=== PATIENT | female | born 1930 | race Caucasian/White ===

== ENCOUNTER 2019-01-16 15:52 | Inpatient (IN) ==
[2019-01-16] MEDS ORDERED: 0.9 % Sodium Chloride 1,000 ML IVC ONE (16:16)
[2019-01-16] MEDS ORDERED: Ondansetron 4 MG/2 ML VIAL IVP ONE (16:16)
[2019-01-16 16:44] LABS: Basophils % 0.4 %; Eosinophils # 0.2 K/mcL (0.0-0.6); Eosinophils % 2.1 %; Hematocrit 42.8 % (35.3-44.9); Hemoglobin 14.1 g/dL (11.5-15.4); Immature Granulocytes % 0.4 % (0-4); Lymphocytes # 1.6 K/mcL (0.6-4.6); Lymphocytes % 15.2 %; Mean Corpuscular HGB Conc 32.9 g/dL (31.6-35.5); Mean Corpuscular Hemoglobin 30.3 pg (28.0-33.3); Mean Corpuscular Volume 91.8 fL (83.0-100.0); Mean Platelet Volume 10.5 fL (9.4-12.4); Monocytes # 0.7 K/mcL (0.0-1.3); Monocytes % 6.6 %; Neutrophils # 7.8 K/mcL (1.6-8.9); Platelet Count 239 K/mcL (140-400); Red Blood Count 4.66 M/mcL (3.82-4.97); Red Cell Distribution Width 13.2 % (11.5-14.5); Segmented Neutrophils % 75.3 %
[2019-01-16 16:52] LABS: Prothrombin Time 11.7 Seconds (9.4-12.1)
[2019-01-16 16:56] LABS: Activated Partial Thrombo Time 30.9 Seconds (26.0-36.0)
[2019-01-16 17:03] LABS: Alanine Aminotransferase 30 Units/L (7-52); Albumin 4.4 g/dL (3.5-5.7); Albumin/Globulin Ratio 1.3 (1.1-2.2); Alkaline Phosphatase 65 Units/L (34-104); Amylase 52 Units/L (29-103); Aspartate Amino Transferase 45 Units/L (13-39); BUN/Creatinine Ratio 19 (6-26); Bilirubin,Direct 0.1 mg/dL (0.0-0.2); Bilirubin,Indirect 0.6 mg/dL (0.0-1.2); Bilirubin,Total 0.7 mg/dL (0.3-1.0); Blood Urea Nitrogen 16 mg/dL (8-23); Calcium 9.7 mg/dL (8.6-10.3); Carbon Dioxide 27 mEq/L (23-29); Chloride 102 mEq/L (98-107); Globulin 3.5 g/dL (2.4-3.5); Glucose 151 mg/dL (70-105); Lipase 14 Units/L (11-82); Osmolality,Calculated 288 (280-300); Sodium 137 mEq/L (136-145); Total Protein 7.9 g/dL (6.4-8.9); Troponin I < 0.03 ng/mL (< 0.04); eGFR For Non-African Americans > 60 (> 60)
[2019-01-16] MEDS ORDERED: Prochlorperazine 10 MG/2 ML VIAL IVP STA (17:43)
--- NOTE | 2019-01-16 17:53 | Emergency Department Note ---
Disposition Clinical Impression: Small bowel obstruction Disposition: Admitted As Inpatient Condition: Good Referrals: Rukhsana Haque CNP [Primary Care Provider] - Forms: ED Satisfaction Letter, Work/School Release Time of Disposition: 17:58 Abdominal Pain HPI - General Chief Complaint: ED Abdominal Pain Stated Complaint: N/V Time Seen by Provider: 01/16/19 15:56 Source: patient, EMS - History of Present Illness HPI Narrative: Patient is a troponin of present probably chief complaint of vomiting. Patient reports that she started having multiple episodes of vomiting last week for hours and been unable to keep anything down. The patient states she also has some vague abdominal pain with this but is not really hurting that bad. Patient reports she had similar episode in this she had a small bowel obstruction. Patient reports that prior abdominal surgeries include a cholecystectomy and surgery for a carcinoid tumor Pt Subjective Complaint: abdominal pain Pain Scale: 8 - Related Data Home Medications Medication Instructions Recorded Confirmed Aspirin 81 mg PO DAILY 05/29/15 05/05/17 Atenolol [Tenormin] 50 mg PO BID 05/29/15 05/05/17 Cholecalciferol (D-3) [Vitamin D3] 1,000 unit PO DAILY 05/29/15 05/05/17 Doxepin [Sinequan] 25 mg PO HS 05/29/15 05/05/17 Levothyroxine [Synthroid] 150 mcg PO DAILY 05/29/15 05/05/17 Multivit-Min/FA/Lycopen/Lutein 1 each PO DAILY 05/29/15 05/05/17 [Centrum Silver Tablet] Previous Rx's Medication Instructions Recorded Losartan Potassium [Cozaar] 50 mg PO DAILY #90 tab 07/22/16 Allergies Allergy/AdvReac Type Severity Reaction Status Date / Time Penicillins Allergy swelling Verified 05/05/17 10:53 Abdominal Pain PMH - Past Medical History Medical history: Reports: hypertension Female Surgical History: Reports: cholecystectomy, hysterectomy - Social History Smoking status: Never smoker Alcohol use: Reports: none Drug use: Reports: none Physical Exam - General General appearance: alert, in no apparent distress Course Vital Signs Temperature 98.2 F 01/16/19 16:04 Pulse Rate 75 01/16/19 16:04 Respiratory Rate 18 01/16/19 16:04 Blood Pressure 193/107 01/16/19 16:04 O2 Sat by Pulse Oximetry 100 01/16/19 16:04 Temperature 98.2 F 01/16/19 16:04 Pulse Rate 75 01/16/19 16:04 Respiratory Rate 18 01/16/19 16:04 Blood Pressure 193/107 01/16/19 16:04 O2 Sat by Pulse Oximetry 100 01/16/19 16:04 Oxygen Delivery Oxygen Delivery Room Air Abdominal Pain - MDM Narrative Medical decision making narrative: Given the CT findings the case was discussed with the on-call surgical staff and the patient will be admitted to the surgery service with a diagnosis of small bowel obstruction - Lab Data Result diagrams: 01/16/19 16:16 01/16/19 16:16 Lab Results 01/16/19 01/16/19 01/16/19 Range/Units 16:16 16:16 16:16 WBC 10.4 (4.3-11.1) K/mcL RBC 4.66 (3.82-4.97) M/mcL Hgb 14.1 (11.5-15.4) g/dL Hct 42.8 (35.3-44.9) % MCV 91.8 (83.0-100.0) fL MCH 30.3 (28.0-33.3) pg MCHC 32.9 (31.6-35.5) g/dL RDW 13.2 (11.5-14.5) % Plt Count 239 (140-400) K/mcL MPV 10.5 (9.4-12.4) fL Immature Gran % 0.4 (0-4) % Seg Neutrophils % 75.3 % Lymphocytes % 15.2 % Monocytes % 6.6 % Eosinophils % 2.1 % Basophils % 0.4 % Neutrophils # 7.8 (1.6-8.9) K/mcL Lymphocytes # 1.6 (0.6-4.6) K/mcL Monocytes # 0.7 (0.0-1.3) K/mcL Eosinophils # 0.2 (0.0-0.6) K/mcL Basophils # 0.0 (0.0-0.2) K/mcL PT 11.7 (9.4-12.1) Seconds INR 1.0 APTT 30.9 (26.0-36.0) Seconds Sodium 137 (136-145) mEq/L Potassium 4.0 (3.5-5.1) mEq/L Chloride 102 (98-107) mEq/L Carbon Dioxide 27 (23-29) mEq/L BUN 16 (8-23) mg/dL Creatinine 0.83 (0.60-1.20) mg/dL Est GFR ( Amer) > 60 (> 60) Est GFR (Non-Af Amer) > 60 (> 60) BUN/Creatinine Ratio 19 (6-26) Glucose 151 H (70-105) mg/dL Calculated Osmolality 288 (280-300) Lactic Acid (0.5-2.2) mmol/L Calcium 9.7 (8.6-10.3) mg/dL Total Bilirubin 0.7 (0.3-1.0) mg/dL Direct Bilirubin 0.1 (0.0-0.2) mg/dL Indirect Bilirubin 0.6 (0.0-1.2) mg/dL AST 45 H (13-39) Units/L ALT 30 (7-52) Units/L Alkaline Phosphatase 65 (34-104) Units/L Troponin I < 0.03 (< 0.04) ng/mL Serum Total Protein 7.9 (6.4-8.9) g/dL Albumin 4.4 (3.5-5.7) g/dL Globulin 3.5 (2.4-3.5) g/dL Albumin/Globulin Ratio 1.3 (1.1-2.2) Amylase 52 (29-103) Units/L Lipase 14 (11-82) Units/L 04/16/19 Range/Units 16:28 WBC (4.3-11.1) K/mcL RBC (3.82-4.97) M/mcL Hgb (11.5-15.4) g/dL Hct (35.3-44.9) % MCV (83.0-100.0) fL MCH (28.0-33.3) pg MCHC (31.6-35.5) g/dL RDW (11.5-14.5) % Plt Count (140-400) K/mcL MPV (9.4-12.4) fL Immature Gran % (0-4) % Seg Neutrophils % % Lymphocytes % % Monocytes % % Eosinophils % % Basophils % % Neutrophils # (1.6-8.9) K/mcL Lymphocytes # (0.6-4.6) K/mcL Monocytes # (0.0-1.3) K/mcL Eosinophils # (0.0-0.6) K/mcL Basophils # (0.0-0.2) K/mcL PT (9.4-12.1) Seconds INR APTT (26.0-36.0) Seconds Sodium (136-145) mEq/L Potassium (3.5-5.1) mEq/L Chloride (98-107) mEq/L Carbon Dioxide (23-29) mEq/L BUN (8-23) mg/dL Creatinine (0.60-1.20) mg/dL Est GFR ( Amer) (> 60) Est GFR (Non-Af Amer) (> 60) BUN/Creatinine Ratio (6-26) Glucose (70-105) mg/dL Calculated Osmolality (280-300) Lactic Acid 1.8 (0.5-2.2) mmol/L Calcium (8.6-10.3) mg/dL Total Bilirubin (0.3-1.0) mg/dL Direct Bilirubin (0.0-0.2) mg/dL Indirect Bilirubin (0.0-1.2) mg/dL AST (13-39) Units/L ALT (7-52) Units/L Alkaline Phosphatase (34-104) Units/L Troponin I (< 0.04) ng/mL Serum Total Protein (6.4-8.9) g/dL Albumin (3.5-5.7) g/dL Globulin (2.4-3.5) g/dL Albumin/Globulin Ratio (1.1-2.2) Amylase (29-103) Units/L Lipase (11-82) Units/L
--- NOTE | 2019-01-16 19:34 | Acute Care Surgery H&P ---
Date of Encounter: 01/16/19 Time of Encounter: 19:00 Assessment and Plan (1) Small bowel obstruction Current Visit: Yes Status: Acute The assessment and plan as outlined above was discussed with the patient and/or family members who expressed understanding and agreement. All questions were answered. High-grade partial small bowel obstruction is diagnosed. She will be placed on bowel rest IV hydration and nasogastric tube drainage. We will evaluate her bowel function on daily basis and perform either a barium or Gastrografin small bowel follow-through. Further decision making based on these findings. History of Present Illness Chief complaint: Nausea vomiting and abdominal pain HPI: Ms. Escalante is a 88 year old female Who is had multiple previous abdominal procedures. 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 Earlier today she developed severe crampy upper abdominal pain followed by high-volume nausea and vomiting. She has not previously had episodes of this type of pain since her last surgery. Her small bowel resection was 12 years ago. She sought eval uation in the emergency room and CAT scan was ordered. CAT scan was consistent with small bowel obstruction with a possible transition area at the anastomosis. She is examined with nasogastric tube in place and she is had some relief of her abdominal discomfort. She denies shakes chills or fever. She now presents for evaluation and management of suspected bowel obstruction Past Med Surg Social Fam HX - Past Medical History Medical history: hypertension Additional medical history: carcinoid tumor - Past Surgical History Surgical History: cholecystectomy, hysterectomy, other (Lysis of adhesions and resection of small bowel carcinoid) - Social History Smoking Status: Never smoker Alcohol use: none Drug use: none Medications and Allergies Atenolol [Tenormin] 50 mg PO BID 05/29/15 [History] Cholecalciferol (D-3) [Vitamin D3] 1,000 unit PO DAILY 05/29/15 [History] Doxepin [Sinequan] 25 mg PO HS 05/29/15 [History] Levothyroxine [Synthroid] 150 mcg PO DAILY 05/29/15 [History] Multivit-Min/FA/Lycopen/Lutein [Centrum Silver Tablet] 1 each PO DAILY 05/29/15 [History] Losartan Potassium [Cozaar] 50 mg PO DAILY #90 tab 07/22/16 [Rx] Allergy/AdvReac Type Severity Reaction Status Date / Time Penicillins Allergy swelling Verified 05/05/17 10:53 Review of Systems All systems PM: The remainder of the systems were reviewed and are negative General Surgery Exam Initial Vital Signs Temp Pulse Resp BP Pulse Ox 98.2 F 75 18 193/107 100 01/16/19 16:04 01/16/19 16:04 01/16/19 16:04 01/16/19 16:04 01/16/19 16:04 - General physical appearance well developed, well nourished, moderate distress, moderate pain, other (Nasogastric tube in place and functioning) - ENT normal pinna, normal nares, normal mucosa, no hearing loss, no congestion - Respiratory normal expansion, normal respiratory effort, clear to percussion, clear to auscultation - Cardiovascular Cardiovascular exam: Present: RRR, no murmurs/rubs/gallops - Abdomen Abdomen general surgery: Present: bowel sounds present, tender Abdominal Tenderness: Present: epigastic, diffusely Hernia: Present: none (Multiple entry midline abdominal scar) - Integumentary Integumentary general surgery: Present: warm and dry, no abnormal pigmentation, other (No evidence of jaundice) - Neurologic Present: CN 2-12 grossly intact, normal coordination, normal sensation - Psychiatric Psychiatric general surgery: Present: appropriate, oriented to person, oriented to place, oriented to time, speech is normal, memory intact Results - Labs 01/16/19 16:16 01/16/19 16:16 Abnormal lab results Glucose 151 mg/dL (70-105) H 01/16/19 16:16 AST 45 Units/L (13-39) H 01/16/19 16:16 Diabetes panel 01/16/19 Range/Units 16:16 Sodium 137 (136-145) mEq/L Potassium 4.0 (3.5-5.1) mEq/L Chloride 102 (98-107) mEq/L Carbon Dioxide 27 (23-29) mEq/L BUN 16 (8-23) mg/dL Creatinine 0.83 (0.60-1.20) mg/dL Glucose 151 H (70-105) mg/dL Calcium 9.7 (8.6-10.3) mg/dL AST 45 H (13-39) Units/L ALT 30 (7-52) Units/L Alkaline Phosphatase 65 (34-104) Units/L Albumin 4.4 (3.5-5.7) g/dL Calcium panel 01/16/19 Range/Units 16:16 Calcium 9.7 (8.6-10.3) mg/dL Albumin 4.4 (3.5-5.7) g/dL Pituitary panel 01/16/19 Range/Units 16:16 Sodium 137 (136-145) mEq/L Potassium 4.0 (3.5-5.1) mEq/L Chloride 102 (98-107) mEq/L Carbon Dioxide 27 (23-29) mEq/L BUN 16 (8-23) mg/dL Creatinine 0.83 (0.60-1.20) mg/dL Glucose 151 H (70-105) mg/dL Calcium 9.7 (8.6-10.3) mg/dL Adrenal panel 01/16/19 Range/Units 16:16 Sodium 137 (136-145) mEq/L Potassium 4.0 (3.5-5.1) mEq/L Chloride 102 (98-107) mEq/L Carbon Dioxide 27 (23-29) mEq/L BUN 16 (8-23) mg/dL Creatinine 0.83 (0.60-1.20) mg/dL Glucose 151 H (70-105) mg/dL Calcium 9.7 (8.6-10.3) mg/dL Total Bilirubin 0.7 (0.3-1.0) mg/dL AST 45 H (13-39) Units/L ALT 30 (7-52) Units/L Alkaline Phosphatase 65 (34-104) Units/L Albumin 4.4 (3.5-5.7) g/dL All other labs normal. - Imaging CT scan - abdomen: image reviewed (I personally reviewed the CAT scan the abdomen. She has mild to moderate proximal small bowel dilatation. To my examination there is not a transition point at the anastomosis. She does have stool throughout the colon. This appears to be a partial bowel obstruction. There were no masses or adenopathy that I can identify)
[2019-01-17] MEDS ORDERED: Ondansetron 4 MG/2 ML VIAL IVP PRN (04:49)
[2019-01-17] MEDS ORDERED: OXYCODONE Oral CONC 10 MG/0.5 ML ORAL.SYG SL PRN (04:49)
[2019-01-17] MEDS: 0.9 % Sodium Chloride w KCl 20 MEQ/1,000 ML MLS IVC SCH ×2 (05:18→19:32)
[2019-01-17] MEDS: *HR* Heparin 5,000 UNIT/ML VIAL SQ SCH ×2 (05:18→17:43)
[2019-01-17] MEDS: Pantoprazole 40 MG VIAL IVP SCH (09:49)
--- NOTE | 2019-01-17 12:14 | AcuteCareSurgery Progress Note ---
<Dori Pedraza - Last Filed: 01/17/19 12:08> Date of Encounter: 01/17/19 Time of Encounter: 12:00 - Assessment and Plan (1) Small bowel obstruction Current Visit: Yes Status: Acute Continue with conservative measures at this time including: Bowel rest/NPO NG tube to LIWS IV fluids Supportive care Serial abdominal exams Strict I&Os Plan for SBFT with gastrograffin 01/18 to further evaluate SBO Surgery will continue to follow and assess progress Subjective Patient reports: no new complaints, feels better, voiding w/o difficulty, flatus, no bowel movement (no BM today- reports BM yesterday), afebrile, other (Patient states that she feels hungry today) Objective Vital Signs - Last 8 Hours Temp Pulse Resp BP Pulse Ox 01/17/19 10:44 97.8 F 79 18 167/79 96 01/17/19 08:25 98.2 F 78 16 141/69 95 Intake and Output 01/16/19 01/17/19 01/17/19 23:59 07:59 15:59 Intake Total 1000 / 1000 343 / 343 Output Total 750 / 750 250 / 250 Balance 250 / 250 -250 / -250 343 / 343 Intake: IV Fluids 1000 / 1000 343 / 343 0.9 % Sodium Chloride 1,000 ML 1000 / 1000 @ 500 mls/hr IVC .Q2H ONE Rx#: [id number] KCl 20 mEq in 0.9% Sodium 343 / 343 Chloride 20 meq In 1,000 ml @ 75 mls/hr IVC .[id number] [facility] Rx#: [id number] Oral 0 / 0 Output: Gastric Drainage 750 / 750 250 / 250 Other: # Voids 1 0 # Urine Diapers 1 Weight 76.566 kg 81 kg Blood Glucose* 140 126 Patient Weight 01/17/19 23:59 Weight 81 kg - General physical appearance well developed, well nourished, no distress - Eyes normal ocular movement - ENT normal mucosa, dry mucosa, atraumatic, normocephalic - Neck Neck exam: trachea midline - Respiratory normal respiratory effort, clear to auscultation - Cardiovascular Cardiovascular exam: Present: RRR - Abdomen Abdomen: Present: bowel sounds present, soft, distended, wound (NG tube to LIWS (300ml of drainage noted since midnight)) - Neurologic CN 2-12 grossly intact - Psychiatric oriented to time, oriented to person, oriented to place, speech is normal, memory intact - Labs 01/16/19 16:16 01/16/19 16:16 Diabetes panel 01/16/19 Range/Units 16:16 Sodium 137 (136-145) mEq/L Potassium 4.0 (3.5-5.1) mEq/L Chloride 102 (98-107) mEq/L Carbon Dioxide 27 (23-29) mEq/L BUN 16 (8-23) mg/dL Creatinine 0.83 (0.60-1.20) mg/dL Glucose 151 H (70-105) mg/dL Calcium 9.7 (8.6-10.3) mg/dL AST 45 H (13-39) Units/L ALT 30 (7-52) Units/L Alkaline Phosphatase 65 (34-104) Units/L Albumin 4.4 (3.5-5.7) g/dL Calcium panel 01/16/19 Range/Units 16:16 Calcium 9.7 (8.6-10.3) mg/dL Albumin 4.4 (3.5-5.7) g/dL Pituitary panel 01/16/19 Range/Units 16:16 Sodium 137 (136-145) mEq/L Potassium 4.0 (3.5-5.1) mEq/L Chloride 102 (98-107) mEq/L Carbon Dioxide 27 (23-29) mEq/L BUN 16 (8-23) mg/dL Creatinine 0.83 (0.60-1.20) mg/dL Glucose 151 H (70-105) mg/dL Calcium 9.7 (8.6-10.3) mg/dL Adrenal panel 01/16/19 Range/Units 16:16 Sodium 137 (136-145) mEq/L Potassium 4.0 (3.5-5.1) mEq/L Chloride 102 (98-107) mEq/L Carbon Dioxide 27 (23-29) mEq/L BUN 16 (8-23) mg/dL Creatinine 0.83 (0.60-1.20) mg/dL Glucose 151 H (70-105) mg/dL Calcium 9.7 (8.6-10.3) mg/dL Total Bilirubin 0.7 (0.3-1.0) mg/dL AST 45 H (13-39) Units/L ALT 30 (7-52) Units/L Alkaline Phosphatase 65 (34-104) Units/L Albumin 4.4 (3.5-5.7) g/dL Consult Discharge Plan - Plan Referrals: Rukhsana Haque, CLOTH DESIGNER [Primary Care Provider] - - Attending Attestation For this encounter, I have reviewed the ANAESTHESIOLOGIST or PA documentation, treatment plan, and medical decision making; and I have had face to face time with this patient. <Lorenzo Zheng - Last Filed: 01/17/19 18:49> Date of Encounter: 01/17/19 Objective Vital Signs - Last 8 Hours Temp Pulse Resp BP Pulse Ox 01/17/19 16:49 98.2 F 84 16 191/67 94 Intake and Output 01/17/19 01/17/19 01/17/19 07:59 15:59 23:59 Intake Total 750 / 750 0 / 0 Output Total 250 / 250 700 / 700 Balance -250 / -250 50 / 50 0 / 0 Intake: IV Fluids 750 / 750 KCl 20 mEq in 0.9% Sodium 750 / 750 Chloride 20 meq In 1,000 ml @ 75 mls/hr IVC .[id number] [facility] Rx#: [id number] Oral 0 / 0 0 / 0 Output: Urine 400 / 400 Gastric Drainage 250 / 250 300 / 300 Other: # Voids 1 0 Weight 81 kg Blood Glucose* 140 126 115 Patient Weight 01/17/19 23:59 Weight 81 kg - Labs 01/16/19 16:16 01/16/19 16:16 - Attending Attestation I have personally seen and examined the patient. I have reviewed pertinent labs, imaging, progress notes, including this one. I have discussed the plan in thorough detail with the resident and nurse practitioner. I agree with the above assessment and plan and wish to add the following... 88F multiple abdominal surgeries with sbo; bowel rest with NG tube manuel SBFT in AM will cont to monitor awaiting return of bowel function
[2019-01-17 13:23] LABS: Bilirubin,Urine Negative (Negative); Blood,Urine Negative (Negative); Clarity,Urine Clear (Clear); Color,Urine Yellow (Yellow); Glucose,Urine (UA) Normal (Normal); Ketones,Urine Trace mg/dL (Negative); Leukocyte Esterase,Urine Small (Negative); Nitrite,Urine Negative (Negative); Protein,Urine Negative (Neg-Trace); Specific Gravity,Urine 1.016 (1.010-1.025); Urobilinogen,Urine Normal (Normal)
[2019-01-17 13:26] LABS: Bacteria,Urine None Seen per hpf (None-Few); Hyaline Casts,Urine None Seen per lpf (None-Few); RBC,Urine 0-3 per hpf (0-3); Squamous Epithelial Cell,Urine Moderate per lpf (None-Few); WBC,Urine 15-30 per hpf (0-3)
[2019-01-17] MEDS: *HR* Metoprolol 5 MG/5 ML VIAL IVP PRN ×2 (15:16→21:56)
--- NOTE | 2019-01-17 18:03 | Electrocardiograph Report ---
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
[2019-01-18 05:17] LABS: Hematocrit 38.8 % (35.3-44.9); Hemoglobin 12.7 g/dL (11.5-15.4); Immature Granulocytes % 0.3 % (0-4); Lymphocytes % 13.7 %; Mean Corpuscular HGB Conc 32.7 g/dL (31.6-35.5); Mean Corpuscular Volume 94.6 fL (83.0-100.0); Mean Platelet Volume 10.6 fL (9.4-12.4); Monocytes % 9.5 %; Platelet Count 191 K/mcL (140-400); Red Cell Distribution Width 13.4 % (11.5-14.5); Segmented Neutrophils % 75.7 %
[2019-01-18 05:18] LABS: Basophils % 0.3 %; Eosinophils % 0.5 %; Lymphocytes # 1.1 K/mcL (0.6-4.6); Monocytes # 0.7 K/mcL (0.0-1.3); Neutrophils # 5.8 K/mcL (1.6-8.9)
[2019-01-18] MEDS: *HR* Heparin 5,000 UNIT/ML VIAL SQ SCH ×2 (05:21→18:02)
[2019-01-18 05:31] LABS: BUN/Creatinine Ratio 16 (6-26); Blood Urea Nitrogen 11 mg/dL (8-23); Calcium 8.8 mg/dL (8.6-10.3); Carbon Dioxide 27 mEq/L (23-29); Chloride 105 mEq/L (98-107); Glucose 136 mg/dL (70-105); Osmolality,Calculated 291 (280-300); Potassium 4.1 mEq/L (3.5-5.1); Sodium 140 mEq/L (136-145); eGFR For Non-African Americans > 60 (> 60)
[2019-01-18] MEDS: *HR* Metoprolol 5 MG/5 ML VIAL IVP PRN (06:54)
--- NOTE | 2019-01-18 07:46 | AcuteCareSurgery Progress Note ---
Date of Encounter: 01/18/19 Time of Encounter: 07:40 - Assessment and Plan (1) Small bowel obstruction Current Visit: Yes Status: Acute The patient has responded well to bowel rest. She has had a spontaneous bowel movement and normalization of bowel sounds. It is reasonable to remove the nasogastric tube in place her on clear liquids today. Dietary trial. Subjective Narrative: The patient states that she had a bowel movement that was high-volume last evening. Her abdominal discomfort is completely gone. The nasogastric tube drainage has dropped off. On physical examination bowel sounds are completely normal. We will remove the nasogastric tube today and place her on clear liquids. This appears to be a partial bowel obstruction that is resolving Objective Vital Signs - Last 8 Hours Temp Pulse Resp BP Pulse Ox 01/18/19 06:56 97.8 F 90 17 170/75 92 01/18/19 03:29 98.4 F 94 16 163/75 96 01/18/19 00:39 99.0 F 91 14 168/71 95 Intake and Output 01/17/19 01/17/19 01/18/19 15:59 23:59 07:59 Intake Total 750 / 750 250 / 250 Output Total 700 / 700 350 / 350 850 / 850 Balance 50 / 50 -100 / -100 -850 / -850 Intake: IV Fluids 750 / 750 250 / 250 KCl 20 mEq in 0.9% Sodium 750 / 750 250 / 250 Chloride 20 meq In 1,000 ml @ 75 mls/hr IVC .[id number] [facility] Rx#: [id number] Oral 0 / 0 0 / 0 Output: Urine 400 / 400 350 / 350 750 / 750 Gastric Drainage 300 / 300 100 / 100 Other: Stool Size Small Stool Consistency loose soft Stool Color Brown # Voids 0 # Bowel Movements 1 Blood Glucose* 126 115 121 - General physical appearance well developed, well nourished, no pain - Respiratory normal expansion, normal respiratory effort, clear to percussion, clear to auscultation - Cardiovascular Cardiovascular exam: Present: RRR, no murmurs/rubs/gallops - Abdomen Abdomen: Present: bowel sounds present, soft, non tender - Neurologic normal coordination, normal sensation - Psychiatric oriented to time, oriented to person, oriented to place, speech is normal, memory intact - Labs 01/18/19 04:17 01/18/19 04:17 Diabetes panel 01/18/19 Range/Units 04:17 Sodium 140 (136-145) mEq/L Potassium 4.1 (3.5-5.1) mEq/L Chloride 105 (98-107) mEq/L Carbon Dioxide 27 (23-29) mEq/L BUN 11 (8-23) mg/dL Creatinine 0.70 (0.60-1.20) mg/dL Glucose 136 H (70-105) mg/dL Calcium 8.8 (8.6-10.3) mg/dL Calcium panel 01/18/19 Range/Units 04:17 Calcium 8.8 (8.6-10.3) mg/dL Pituitary panel 01/18/19 Range/Units 04:17 Sodium 140 (136-145) mEq/L Potassium 4.1 (3.5-5.1) mEq/L Chloride 105 (98-107) mEq/L Carbon Dioxide 27 (23-29) mEq/L BUN 11 (8-23) mg/dL Creatinine 0.70 (0.60-1.20) mg/dL Glucose 136 H (70-105) mg/dL Calcium 8.8 (8.6-10.3) mg/dL Adrenal panel 01/18/19 Range/Units 04:17 Sodium 140 (136-145) mEq/L Potassium 4.1 (3.5-5.1) mEq/L Chloride 105 (98-107) mEq/L Carbon Dioxide 27 (23-29) mEq/L BUN 11 (8-23) mg/dL Creatinine 0.70 (0.60-1.20) mg/dL Glucose 136 H (70-105) mg/dL Calcium 8.8 (8.6-10.3) mg/dL Consult Discharge Plan - Plan Referrals: Rukhsana Haque, ROLLER COASTER OPERATOR [Primary Care Provider] -
[2019-01-18] MEDS: Pantoprazole 40 MG VIAL IVP SCH (08:14)
[2019-01-18] MEDS: 0.9 % Sodium Chloride w KCl 20 MEQ/1,000 ML MLS IVC SCH (09:13)
[2019-01-18] MEDS ORDERED: 0.9 % Sodium Chloride w KCl 20 MEQ/1,000 ML MLS IVC SCH (14:52)
[2019-01-19] MEDS: *HR* Heparin 5,000 UNIT/ML VIAL SQ SCH (05:34)
[2019-01-19 05:53] LABS: Basophils % 0.4 %; Eosinophils # 0.2 K/mcL (0.0-0.6); Eosinophils % 3.2 %; Hematocrit 37.2 % (35.3-44.9); Hemoglobin 12.1 g/dL (11.5-15.4); Immature Granulocytes % 0.3 % (0-4); Lymphocytes # 1.2 K/mcL (0.6-4.6); Lymphocytes % 16.7 %; Mean Corpuscular HGB Conc 32.5 g/dL (31.6-35.5); Mean Corpuscular Hemoglobin 29.9 pg (28.0-33.3); Mean Corpuscular Volume 91.9 fL (83.0-100.0); Mean Platelet Volume 10.5 fL (9.4-12.4); Monocytes # 0.7 K/mcL (0.0-1.3); Monocytes % 9.8 %; Platelet Count 182 K/mcL (140-400); Red Blood Count 4.05 M/mcL (3.82-4.97); Red Cell Distribution Width 13.2 % (11.5-14.5); Segmented Neutrophils % 69.6 %
[2019-01-19 06:11] LABS: BUN/Creatinine Ratio 12 (6-26); Blood Urea Nitrogen 8 mg/dL (8-23); Calcium 8.8 mg/dL (8.6-10.3); Carbon Dioxide 27 mEq/L (23-29); Chloride 105 mEq/L (98-107); Glucose 111 mg/dL (70-105); Osmolality,Calculated 291 (280-300); Potassium 3.9 mEq/L (3.5-5.1); Sodium 141 mEq/L (136-145); eGFR For Non-African Americans > 60 (> 60)
[2019-01-19] MEDS: Pantoprazole 40 MG VIAL IVP SCH (07:41)
--- NOTE | 2019-01-19 09:08 | AcuteCareSurgery Progress Note ---
<Carmine Mendez - Last Filed: 01/19/19 09:06> Date of Encounter: 01/19/19 Time of Encounter: 09:06 - Assessment and Plan (1) Small bowel obstruction Current Visit: Yes Status: Acute This is an 88-year-old female with past medical history significant for hypertension with history of multiple previous abdominal procedures including cholecystectomy, hysterectomy, resection of small bowel carcinoid tumor who presents complaining of upper abdominal pain, nausea, vomiting. - NG tube was placed with partially alleviated symptoms - CT scan did show partial small bowel obstruction - Patient was given IV hydration - Patient was initially placed on bowel rest. - Patient had spontaneous bowel movement - Diet advanced to clear liquids, and patient has tolerated clear liquids. - Currently comfortable, no acute distress, tolerating diet. PLAN: - Advance diet as tolerated, we will advance from clear liquids to full liquids and possibly soft diet this afternoon - Continue to monitor for worsening abdominal pain, nausea, vomiting - Monitor for fevers or worsening leukocytosis - Pain and/or nausea control as needed - If patient tolerates diet, may consider discharge sometime later today Subjective Patient reports: no new complaints, feels better, tolerating liquids well, voiding w/o difficulty, flatus, bowel movement, diarrhea, afebrile Narrative: Patient was seen and examined resting comfortably in chair next to bedside this morning. States that she is feeling much better. Notes that she has been tolerating clear liquid diet. She has been passing gas and had multiple loose stools over the past 2 days. She denies any nausea, abdominal pain, vomiting. Patient remains afebrile without leukocytosis. No acute overnight events. She is requesting advance in diet. We will advance from clear liquid diet to full liquid diet. Objective Vital Signs - Last 8 Hours Temp Pulse Resp BP Pulse Ox 01/19/19 07:26 98.5 F 77 16 169/77 97 01/19/19 04:07 97.5 F L 74 16 161/83 96 Intake and Output 01/18/19 01/19/19 01/19/19 23:59 07:59 15:59 Output Total 750 / 750 Balance -750 / -750 Output: Urine 750 / 750 Other: Stool Size Moderate Stool Consistency loose Stool Color Brown # Voids 1 # Bowel Movement Diapers 1 Weight 81.4 kg Blood Glucose* 126 Patient Weight 01/19/19 23:59 Weight 81.4 kg - General physical appearance well developed, well nourished, no distress, no pain - Eyes normal ocular movement - ENT no hearing loss, no congestion, atraumatic, normocephalic - Neck Neck exam: trachea midline - Respiratory normal expansion, normal respiratory effort, clear to auscultation - Cardiovascular Cardiovascular exam: Present: RRR, regular rhythm, no murmurs/rubs/gallops - Abdomen Abdomen: Present: bowel sounds present, soft, non tender - Psychiatric oriented to time, oriented to person, oriented to place, speech is normal, m weston intact - Labs 01/19/19 05:18 01/19/19 05:18 Diabetes panel 01/19/19 Range/Units 05:18 Sodium 141 (136-145) mEq/L Potassium 3.9 (3.5-5.1) mEq/L Chloride 105 (98-107) mEq/L Carbon Dioxide 27 (23-29) mEq/L BUN 8 (8-23) mg/dL Creatinine 0.69 (0.60-1.20) mg/dL Glucose 111 H (70-105) mg/dL Calcium 8.8 (8.6-10.3) mg/dL Calcium panel 01/19/19 Range/Units 05:18 Calcium 8.8 (8.6-10.3) mg/dL Pituitary panel 01/19/19 Range/Units 05:18 Sodium 141 (136-145) mEq/L Potassium 3.9 (3.5-5.1) mEq/L Chloride 105 (98-107) mEq/L Carbon Dioxide 27 (23-29) mEq/L BUN 8 (8-23) mg/dL Creatinine 0.69 (0.60-1.20) mg/dL Glucose 111 H (70-105) mg/dL Calcium 8.8 (8.6-10.3) mg/dL Adrenal panel 01/19/19 Range/Units 05:18 Sodium 141 (136-145) mEq/L Potassium 3.9 (3.5-5.1) mEq/L Chloride 105 (98-107) mEq/L Carbon Dioxide 27 (23-29) mEq/L BUN 8 (8-23) mg/dL Creatinine 0.69 (0.60-1.20) mg/dL Glucose 111 H (70-105) mg/dL Calcium 8.8 (8.6-10.3) mg/dL Consult Discharge Plan - Plan Instructions: Bowel Obstruction (DC) Referrals: Kian Hancock MD [Partnered Physician] - Rukhsana Haque CNP [Primary Care Provider] - Prescriptions: Ondansetron ODT [Zofran ODT] 4 mg SL Q6HR PRN 5 Days #20 tab.rapdis PRN Reason: Nausea Docusate [Colace] 100 mg PO BID 14 Days #28 capsule <Kian Hancock - Last Filed: 01/19/19 13:56> Date of Encounter: 01/19/19 Objective Vital Signs - Last 8 Hours Temp Pulse Resp BP Pulse Ox 01/19/19 11:14 98.3 F 75 16 166/80 97 01/19/19 07:26 98.5 F 77 16 169/77 97 Intake and Output 01/18/19 01/19/19 01/19/19 23:59 07:59 15:59 Output Total 750 / 750 Balance -750 / -750 Output: Urine 750 / 750 Other: Stool Size Moderate Small Stool Consistency loose loose liquid Stool Color Brown Brown # Voids 1 1 # Bowel Movement Diapers 1 1 Weight 81.4 kg Blood Glucose* 126 Patient Weight 01/19/19 23:59 Weight 81.4 kg - Labs 01/19/19 05:18 01/19/19 05:18 Diabetes panel 01/19/19 Range/Units 05:18 Sodium 141 (136-145) mEq/L Potassium 3.9 (3.5-5.1) mEq/L Chloride 105 (98-107) mEq/L Carbon Dioxide 27 (23-29) mEq/L BUN 8 (8-23) mg/dL Creatinine 0.69 (0.60-1.20) mg/dL Glucose 111 H (70-105) mg/dL Calcium 8.8 (8.6-10.3) mg/dL Calcium panel 01/19/19 Range/Units 05:18 Calcium 8.8 (8.6-10.3) mg/dL Pituitary panel 01/19/19 Range/Units 05:18 Sodium 141 (136-145) mEq/L Potassium 3.9 (3.5-5.1) mEq/L Chloride 105 (98-107) mEq/L Carbon Dioxide 27 (23-29) mEq/L BUN 8 (8-23) mg/dL Creatinine 0.69 (0.60-1.20) mg/dL Glucose 111 H (70-105) mg/dL Calcium 8.8 (8.6-10.3) mg/dL Adrenal panel 01/19/19 Range/Units 05:18 Sodium 141 (136-145) mEq/L Potassium 3.9 (3.5-5.1) mEq/L Chloride 105 (98-107) mEq/L Carbon Dioxide 27 (23-29) mEq/L BUN 8 (8-23) mg/dL Creatinine 0.69 (0.60-1.20) mg/dL Glucose 111 H (70-105) mg/dL Calcium 8.8 (8.6-10.3) mg/dL - Attending Attestation I examined this patient and my medical decision-making was reviewed with the Resident Physician. I agree with the documented findings, disposition and treat ment plan as described except to the extent set forth below. Review the above assessment and evaluation and agree with the above plan. Patient is tolerating clears and will advance diet to full liquids. We will further advance diet to soft foods by this afternoon/evening and if she t olerates I think would be appropriate for her to be discharged home. She currently has no abdominal pain on examination. No nausea or vomiting. No pain to palpation
--- NOTE | 2019-01-19 12:25 | Discharge Summary ---
<Carmine Mendez - Last Filed: 01/19/19 12:19> - NOTES TO OUTPATIENT PROVIDER Notes to Outpatient Provider: Please follow up with her primary care provider in approximately 1 week. Please follow up with Dr. Hancock in approximately 2-4 weeks. Orders not resulted at time of discharge: Pending orders 01/20/19 04:00 Basic Metabolic Panel AM 0400 Complete Blood Count [HEME] AM 0400 Date of Encounter: 01/19/19 Time of Encounter: 12:19 - Discharge Diagnosis (1) Small bowel obstruction Priority: Primary Status: Acute General Surgery Exam Initial Vital Signs Temp Pulse Resp BP Pulse Ox 98.2 F 75 18 193/107 100 01/16/19 16:04 01/16/19 16:04 01/16/19 16:04 01/16/19 16:04 01/16/19 16:04 - General physical appearance well developed, well nourished, no distress, no pain - Eyes normal ocular movement - ENT normal nares, normal mucosa, no hearing loss, no congestion, atraumatic, normocephalic - Neck trachea midline - Respiratory normal expansion, normal respiratory effort, clear to auscultation - Cardiovascular Cardiovascular exam: Present: RRR, regular rhythm, no murmurs/rubs/gallops - Expanded Cardiovascular Exam Peripheral pulses: 2+: Radial (L), Radial (R) - Abdomen Abdomen general surgery: Present: bowel sounds present, soft, non tender, surgical scars - Integumentary Integumentary general surgery: Present: warm and dry, no abnormal pigmentation - Psychiatric Psychiatric general surgery: Present: A&Ox3, appropriate, oriented to person, oriented to place, oriented to time, speech is normal, memory intact - Hospital Course Hospital course: Ms. Escalante is a 88 year old female with past medical history significant for hypertension and carcinoid tumor, and past surgical history significant for cholecystectomy, open hysterectomy, exploratory laparotomy with lysis of adhesions and resection of small bowel carcinoid tumor who initially presented to the ED complaining of severe crampy upper abdominal pain. Associated with intractable nausea and vomiting. Patient was diffusely tender on initial exam. CT scan of the abdomen and pelvis was ordered which showed small bowel obstruction with possible transition at the area of the anastomosis from previous surgery. High-grade partial small bowel obstruction was diagnosed. An NG tube was placed and initially relieved symptoms. Decision was made to medically manage patient. She was placed on bowel rest and given IV fluids. Also given IV nausea and pain control. Due to the course of her hospital stay, patient improved with bowel rest and medical management. She had a spontaneous bowel movement and had normalization of bowel sounds. NG tube was removed. She was started on clear liquid diet and slowly advanced. She tolerated advancing of diet. Patiently currently has no complaints today. We will plan on discharging her home. - Time Spent with Patient Total time spent providing and/or coordinating discharge services: Less than 30 minutes - Discharge Medications Prescriptions: New Ondansetron ODT [Zofran ODT] 4 mg SL Q6HR PRN 5 Days #20 tab.rapdis PRN Reason: Nausea Docusate [Colace] 100 mg PO BID 14 Days #28 capsule No Action Levothyroxine [Synthroid] 150 mcg PO DAILY Doxepin [Sinequan] 25 mg PO HS Atenolol [Tenormin] 50 mg PO BID Cholecalciferol (D-3) [Vitamin D3] 1,000 unit PO DAILY Multivit-Min/FA/Lycopen/Lutein [Centrum Silver Tablet] 1 each PO DAILY Losartan Potassium [Cozaar] 50 mg PO DAILY #90 tab Home Medications: Atenolol [Tenormin] 50 mg PO BID 05/29/15 [History] Cholecalciferol (D-3) [Vitamin D3] 1,000 unit PO DAILY 05/29/15 [History] Doxepin [Sinequan] 25 mg PO HS 05/29/15 [History] Levothyroxine [Synthroid] 150 mcg PO DAILY 05/29/15 [History] Multivit-Min/FA/Lycopen/Lutein [Centrum Silver Tablet] 1 each PO DAILY 05/29/15 [History] Losartan Potassium [Cozaar] 50 mg PO DAILY #90 tab 07/22/16 [Rx] Docusate [Colace] 100 mg PO BID 14 Days #28 capsule 01/19/19 [Rx] Ondansetron ODT [Zofran ODT] 4 mg SL Q6HR PRN 5 Days #20 tab.rapdis 01/19/19 [Rx] Allergies/Adverse Reactions: Allergy/AdvReac Type Severity Reaction Status Date / Time Penicillins Allergy swelling Verified 05/05/17 10:53 Date of admission: 01/16/19 21:51 Primary care physician: Rukhsana Haque CNP Discharging clinician: Carmine Mendez Anticipated date of discharge: 01/19/19 Labs on day of discharge: Labs from last 24 hours 01/19/19 01/19/19 01/18/19 05:18 05:18 19:51 WBC 7.1 RBC 4.05 Hgb 12.1 Hct 37.2 MCV 91.9 MCH 29.9 MCHC 32.5 RDW 13.2 Plt Count 182 MPV 10.5 Immature Gran % 0.3 Seg Neutrophils % 69.6 Lymphocytes % 16.7 Monocytes % 9.8 Eosinophils % 3.2 Basophils % 0.4 Neutrophils # 5.0 Lymphocytes # 1.2 Monocytes # 0.7 Eosinophils # 0.2 Basophils # 0.0 Sodium 141 Potassium 3.9 Chloride 105 Carbon Dioxide 27 BUN 8 Creatinine 0.69 Est GFR ( Amer) > 60 Est GFR (Non-Af Amer) > 60 BUN/Creatinine Ratio 12 Glucose 111 H POC Glucose 126 H Calculated Osmolality 291 Calcium 8.8 01/18/19 01/17/19 00:43 12:01 WBC RBC Hgb Hct MCV MCH MCHC RDW Plt Count MPV Immature Gran % Seg Neutrophils % Lymphocytes % Monocytes % Eosinophils % Basophils % Neutrophils # Lymphocytes # Monocytes # Eosinophils # Basophils # Sodium Potassium Chloride Carbon Dioxide BUN Creatinine Est GFR ( Amer) Est GFR (Non-Af Amer) BUN/Creatinine Ratio Glucose POC Glucose 134 H 126 H Calculated Osmolality Calcium - Impressions ITS Impressions Abdomen/Pelvis CT 01/16/19 16:17 IMPRESSION: Small-bowel obstruction with a transition suspected at the level of the anastomosis. D/ / 01/16/2019 17:33:40 Ashwin Nelson MD / earmarisol Interpreting Provider: Ashwin Nelson MD X-Ray 01/17/19 19:43 IMPRESSION: 1. NG tube tip in the proximal stomach with the side hole likely in the distal esophagus. Recommend advancing by at least 10 cm. D/ / Jordan Herzog MD / Jordan Herzog MD Interpreting Provider: Jordan Herzog MD - Patient Status Disposition: Home, Self-Care Condition: Good Functional capacity at discharge: independent ambulation Overall status at discharge: patient is progressing back to baseline - Discharge Instructions Instructions: Bowel Obstruction (DC) Follow Up With: Rukhsana Haque CNP [Primary Care Provider] - - Diet and Activity Activity: increase activity as tolerated, resume usual activities as tolerated Diet: advance to your usual diet (Please began with soft foods, and slowly advance to regular diet) <Haley Lopez - Last Filed: 01/19/19 15:05> Orders not resulted at time of discharge: Pending orders 01/20/19 04:00 Basic Metabolic Panel AM 0400 Complete Blood Count [HEME] AM 0400 Date of Encounter: 01/19/19 General Surgery Exam Initial Vital Signs Temp Pulse Resp BP Pulse Ox 98.2 F 75 18 193/107 100 01/16/19 16:04 01/16/19 16:04 01/16/19 16:04 01/16/19 16:04 01/16/19 16:04 - Time Spent with Patient Total time spent providing and/or coordinating discharge services: Date of admission: 01/16/19 21:51 Primary care physician: Rukhsana Haque CNP Labs on day of discharge: Labs from last 24 hours 01/19/19 01/19/19 01/18/19 05:18 05:18 19:51 WBC 7.1 RBC 4.05 Hgb 12.1 Hct 37.2 MCV 91.9 MCH 29.9 MCHC 32.5 RDW 13.2 Plt Count 182 MPV 10.5 Immature Gran % 0.3 Seg Neutrophils % 69.6 Lymphocytes % 16.7 Monocytes % 9.8 Eosinophils % 3.2 Basophils % 0.4 Neutrophils # 5.0 Lymphocytes # 1.2 Monocytes # 0.7 Eosinophils # 0.2 Basophils # 0.0 Sodium 141 Potassium 3.9 Chloride 105 Carbon Dioxide 27 BUN 8 Creatinine 0.69 Est GFR ( Amer) > 60 Est GFR (Non-Af Amer) > 60 BUN/Creatinine Ratio 12 Glucose 111 H POC Glucose 126 H Calculated Osmolality 291 Calcium 8.8 01/18/19 01/17/19 00:43 12:01 WBC RBC Hgb Hct MCV MCH MCHC RDW Plt Count MPV Immature Gran % Seg Neutrophils % Lymphocytes % Monocytes % Eosinophils % Basophils % Neutrophils # Lymphocytes # Monocytes # Eosinophils # Basophils # Sodium Potassium Chloride Carbon Dioxide BUN Creatinine Est GFR ( Amer) Est GFR (Non-Af Amer) BUN/Creatinine Ratio Glucose POC Glucose 134 H 126 H Calculated Osmolality Calcium - Impressions ITS Impressions Abdomen/Pelvis CT 01/16/19 16:17 IMPRESSION: Small-bowel obstruction with a transition suspected at the level of the anastomosis. D/ / 01/16/2019 17:33:40 Ashwin Nelson MD / abdoul Interpreting Provider: Ashwin Nelson MD X-Ray 01/17/19 19:43 IMPRESSION: 1. NG tube tip in the proximal stomach with the side hole likely in the distal esophagus. Recommend advancing by at least 10 cm. D/ / Jordan Herzog MD / Jordan Herzog MD Interpreting Provider: Jordan Herzog MD - Patient Status Functional capacity at discharge: independent ambulation Overall status at discharge: patient is progressing back to baseline - Diet and Activity Activity: increase activity as tolerated
[2019-01-19 14:57] VITALS: BP 163/84
== END 2019-01-19 16:43 | disposition home or self-care (01) | DRG 390 ==
LOC: EMEROOARM 15:52 → 3ANU 15:52
PROVIDERS: ADMIT Surgery; ATTEND Surgery

== ENCOUNTER 2019-04-23 16:51 | Inpatient (IN) ==
[2019-04-23] MEDS ORDERED: Ondansetron 4 MG/2 ML VIAL IVP ONE (16:55)
--- NOTE | 2019-04-23 17:15 | Emergency Department Note ---
Disposition Clinical Impression: Partial small bowel obstruction Disposition: Admitted As Inpatient Condition: Fair Time of Disposition: 18:40 Abdominal Pain HPI - General Chief Complaint: ED Abdominal Pain Stated Complaint: abdominal pain Time Seen by Provider: 04/23/19 16:54 Source: patient, EMS Nursing Notes Reviewed: Yes Vital Signs Reviewed: Yes - History of Present Illness HPI Narrative: 88-year-old female presents from home for evaluation of upper abdominal pain. Onset 5 hours prior to arrival. Described as intense, cramping. She compares it to labor pains. Identical in character and intensity to her bowel obstruction for which she was admitted to this facility in the last several months. This was managed nonoperatively at the time. Patient has nausea without vomiting. She had a normal bowel movement this morning at a loose bowel movement 2 hours prior to arrival. No melena and no hematochezia. PMH: Hypertension, thyroid disease Abdominal surgical history: Cholecystectomy, appendectomy, hysterectomy, staged bilateral oophorectomy ROS: Positive: Upper abdominal cramping, nausea, loose stool 1 Negative: Fever, chills, vomiting, chest pain, palpitations, dyspnea, diaphoresis, flank pain, unusual back pain Pain Scale: 7 - Related Data Home Medications Medication Instructions Recorded Confirmed Atenolol [Tenormin] 50 mg PO BID 05/29/15 04/23/19 Cholecalciferol (D-3) [Vitamin D3] 1,000 unit PO DAILY 05/29/15 04/23/19 Doxepin [Sinequan] 25 mg PO HS 05/29/15 04/23/19 Levothyroxine [Synthroid] 150 mcg PO DAILY 05/29/15 04/23/19 Multivit-Min/FA/Lycopen/Lutein 1 each PO DAILY 05/29/15 04/23/19 [Centrum Silver Tablet] Previous Rx's Medication Instructions Recorded Losartan Potassium [Cozaar] 50 mg PO DAILY #90 tab 07/22/16 Allergies Allergy/AdvReac Type Severity Reaction Status Date / Time Penicillins Allergy swelling Verified 05/05/17 10:53 All systems ED: reviewed and negative except as stated. Review of Systems: As Per HPI Abdominal Pain PMH - Past Medical History Medical history: Reports: hypertension, thyroid disease Female Surgical History: Reports: cholecystectomy, hysterectomy Psychiatric history: Reports: no psych history - Social History Smoking status: Never smoker Alcohol use: Reports: none Drug use: Reports: none Physical Exam Vital Signs Reviewed General: Patient is alert, oriented, and in no acute distress. Head: atraumatic, normocephalic Eye: normal appearance, PERRL, EOMI, no scleral icterus, no conjunctival injection ENT: mucous membranes moist, normal external ear exam Neck: normal inspection, trachea midline, full ROM Chest: normal inspection, symmetric chest rise Respiratory: Good respiratory effort. Bilateral breath sounds are clear without wheezing, crackles, or rhonchi. Cardiovascular: Regular rate and rhythm. No clicks, rubs, gallops, or murmors. Normal heart sounds. Abdomen: Bowel sounds present normoactive. Abdomen is soft, nondistended. Mild to moderate epigastric and left upper quadrant abdominal tenderness. No guarding or rebound. Musculoskeletal: Spontaneously moving all extremities. Skin: warm, dry, intact. Neuro: GCS 15. No focal neurologic deficits observed. Psych: Patient's affect is appropriate for situation. - General General appearance: alert Course Course Narrative: Initial concern is for bowel obstruction given patient's history, symptoms today, and similar symptoms recently. She has no vomiting. We will hold on NG tube at this time. She denies need for pain control this time. EKG dated 04/23/2019 at 17:59 interpreted as sinus rhythm with a rate of 76. SC 57, contrast any, QTC 446. Normal axis. Nonspecific ST-T changes. Compared to previous dated 01/16/2019 showing no acute ischemic changes or comparison. Serum hematology is unremarkable. Serum chemistries unremarkable. Urinalysis concerning for UTI. 1 g Rocephin IV given. CT abdomen pelvis shows partial small bowel obstruction. Consistent with patient's history. Will place NG tube. I discussed the above with the patient and family. They are agreement to admission to the hospital. Advised him of nothing by mouth status. They are agreeable to current management plan. All questions answered. I discussed the above with the admitting hospitals, Dr. Soares, who agrees to accept the patient for continuation monitoring. I discussed the above with Dr. Castro, on-call acute care surgery, who agrees to follow the patient as consult with admission to hospitalist. Abdomen/Pelvis CT 04/23/19 16:56 IMPRESSION: Cluster of mildly dilated small bowel loops in the area of a small bowel to small bowel anastomosis in the lower abdomen/pelvis. These loops are filled with stool-like material suggesting stasis. Small bowel loops proximal and distal to these mildly dilated loops are collapsed. A partial small bowel obstruction is suspected similar to the study of 01/16/2019. D/ / Yovani Floyd MD / Yovani Floyd MD Interpreting Provider: Yovani Floyd MD Vital Signs Temperature 97.8 F 04/23/19 16:55 Pulse Rate 76 04/23/19 16:55 Respiratory Rate 18 04/23/19 16:55 Blood Pressure 197/70 04/23/19 16:55 O2 Sat by Pulse Oximetry 95 04/23/19 16:55 Temperature 97.8 F 04/23/19 16:55 Pulse Rate 81 04/23/19 20:09 Respiratory Rate 16 04/23/19 20:09 Blood Pressure 165/76 04/23/19 20:09 O2 Sat by Pulse Oximetry 92 04/23/19 20:09 Oxygen Delivery Oxygen Delivery Room Air Abdominal Pain - Lab Data Result diagrams: 04/23/19 17:14 04/23/19 17:14 Lab Results 04/23/19 04/23/19 04/23/19 Range/Units 17:14 17:14 17:14 WBC 9.4 (4.3-11.1) K/mcL RBC 4.31 (3.82-4.97) M/mcL Hgb 12.9 (11.5-15.4) g/dL Hct 37.9 (35.3-44.9) % MCV 87.9 (83.0-100.0) fL MCH 29.9 (28.0-33.3) pg MCHC 34.0 (31.6-35.5) g/dL RDW 13.1 (11.5-14.5) % Plt Count 206 (140-400) K/mcL MPV 10.3 (9.4-12.4) fL Immature Gran % 0.4 (0-4) % Seg Neutrophils % 76.3 % Lymphocytes % 13.7 % Monocytes % 6.9 % Eosinophils % 2.2 % Basophils % 0.5 % Neutrophils # 7.1 (1.6-8.9) K/mcL Lymphocytes # 1.3 (0.6-4.6) K/mcL Monocytes # 0.7 (0.0-1.3) K/mcL Eosinophils # 0.2 (0.0-0.6) K/mcL Basophils # 0.1 (0.0-0.2) K/mcL Sodium 139 (136-145) mEq/L Potassium 4.3 (3.5-5.1) mEq/L Chloride 103 (98-107) mEq/L Carbon Dioxide 28 (23-29) mEq/L BUN 17 (8-23) mg/dL Creatinine 0.86 (0.60-1.20) mg/dL Est GFR ( Amer) > 60 (> 60) Est GFR (Non-Af Amer) > 60 (> 60) BUN/Creatinine Ratio 20 (6-26) Glucose 160 H (70-105) mg/dL Calculated Osmolality 293 (280-300) Lactic Acid 1.1 (0.5-2.2) mmol/L Calcium 9.6 (8.6-10.3) mg/dL Total Bilirubin 0.6 (0.3-1.0) mg/dL Direct Bilirubin 0.1 (0.0-0.2) mg/dL Indirect Bilirubin 0.5 (0.0-1.2) mg/dL AST 32 (13-39) Units/L ALT 22 (7-52) Units/L Alkaline Phosphatase 56 (34-104) Units/L Troponin I < 0.03 (< 0.04) ng/mL Serum Total Protein 7.1 (6.4-8.9) g/dL Albumin 4.0 (3.5-5.7) g/dL Globulin 3.1 (2.4-3.5) g/dL Albumin/Globulin Ratio 1.3 (1.1-2.2) Amylase 46 (29-103) Units/L Lipase 13 (11-82) Units/L Urine Color (Yellow) Urine Clarity (Clear) Urine pH (5.0-8.0) pH Units Ur Specific [place] (1.010-1.025) Urine Protein (Neg-Trace) mg/dL Urine Glucose (UA) (Normal) mg/dL Urine Ketones (Negative) mg/dL Urine Blood (Negative) Urine Nitrite (Negative) Urine Bilirubin (Negative) Urine Urobilinogen (Normal) mg/dL Ur Leukocyte Esterase (Negative) Urine Microscopic RBC (0-3) per hpf Urine Microscopic WBC (0-3) per hpf Ur Squamous Epith Cells (None-Few) per lpf Urine Bacteria (None-Few) per hpf Hyaline Casts (None-Few) per lpf Ur Culture Indicated? (NO) 04/23/19 Range/Units 18:13 WBC (4.3-11.1) K/mcL RBC (3.82-4.97) M/mcL Hgb (11.5-15.4) g/dL Hct (35.3-44.9) % MCV (83.0-100.0) fL MCH (28.0-33.3) pg MCHC (31.6-35.5) g/dL RDW (11.5-14.5) % Plt Count (140-400) K/mcL MPV (9.4-12.4) fL Immature Gran % (0-4) % Seg Neutrophils % % Lymphocytes % % Monocytes % % Eosinophils % % Basophils % % Neutrophils # (1.6-8.9) K/mcL Lymphocytes # (0.6-4.6) K/mcL Monocytes # (0.0-1.3) K/mcL Eosinophils # (0.0-0.6) K/mcL Basophils # (0.0-0.2) K/mcL Sodium (136-145) mEq/L Potassium (3.5-5.1) mEq/L Chloride (98-107) mEq/L Carbon Dioxide (23-29) mEq/L BUN (8-23) mg/dL Creatinine (0.60-1.20) mg/dL Est GFR ( Amer) (> 60) Est GFR (Non-Af Amer) (> 60) BUN/Creatinine Ratio (6-26) Glucose (70-105) mg/dL Calculated Osmolality (280-300) Lactic Acid (0.5-2.2) mmol/L Calcium (8.6-10.3) mg/dL Total Bilirubin (0.3-1.0) mg/dL Direct Bilirubin (0.0-0.2) mg/dL Indirect Bilirubin (0.0-1.2) mg/dL AST (13-39) Units/L ALT (7-52) Units/L Alkaline Phosphatase (34-104) Units/L Troponin I (< 0.04) ng/mL Serum Total Protein (6.4-8.9) g/dL Albumin (3.5-5.7) g/dL Globulin (2.4-3.5) g/dL Albumin/Globulin Ratio (1.1-2.2) Amylase (29-103) Units/L Lipase (11-82) Units/L Urine Color Yellow (Yellow) Urine Clarity Cloudy A (Clear) Urine pH 6.0 (5.0-8.0) pH Units Ur Specific [place] 1.021 (1.010-1.025) Urine Protein Negative (Neg-Trace) mg/dL Urine Glucose (UA) Normal (Normal) mg/dL Urine Ketones Trace H (Negative) mg/dL Urine Blood Negative (Negative) Urine Nitrite Positive A (Negative) Urine Bilirubin Negative (Negative) Urine Urobilinogen Normal (Normal) mg/dL Ur Leukocyte Esterase Moderate H (Negative) Urine Microscopic RBC 0-3 (0-3) per hpf Urine Microscopic WBC 30-50 H (0-3) per hpf Ur Squamous Epith Cells None Seen (None-Few) per lpf Urine Bacteria Many H (None-Few) per hpf Hyaline Casts None Seen (None-Few) per lpf Ur Culture Indicated? YES A (NO)
--- NOTE | 2019-04-23 17:15 | Emergency Department Note ---
Disposition Clinical Impression: Partial small bowel obstruction Disposition: Admitted As Inpatient Condition: Fair Time of Disposition: 18:43 General Adult HPI - General Chief complaint: ED Abdominal Pain Stated complaint: abdominal pain Time Seen by Provider: 04/23/19 16:54 Source: patient, EMS - History of Present Illness Pain Scale: 7 - Related Data Home Medications Medication Instructions Recorded Confirmed Atenolol [Tenormin] 50 mg PO BID 05/29/15 04/23/19 Cholecalciferol (D-3) [Vitamin D3] 1,000 unit PO DAILY 05/29/15 04/23/19 Doxepin [Sinequan] 25 mg PO HS 05/29/15 04/23/19 Levothyroxine [Synthroid] 150 mcg PO DAILY 05/29/15 04/23/19 Multivit-Min/FA/Lycopen/Lutein 1 each PO DAILY 05/29/15 04/23/19 [Centrum Silver Tablet] Previous Rx's Medication Instructions Recorded Losartan Potassium [Cozaar] 50 mg PO DAILY #90 tab 07/22/16 Allergies Allergy/AdvReac Type Severity Reaction Status Date / Time Penicillins Allergy swelling Verified 05/05/17 10:53 Past Medical History - Past Medical History Medical history: Reports: hypertension, thyroid disease Surgical history: Reports: cholecystectomy, hysterectomy, other Psychiatric history: Reports: no psych history - Social History Smoking Status: Never smoker Smokeless Tobacco Status: No Alcohol use: Reports: none Drug use: Reports: none Physical Exam - General General appearance: alert Course Vital Signs Temperature 97.8 F 04/23/19 16:55 Pulse Rate 76 04/23/19 16:55 Respiratory Rate 18 04/23/19 16:55 Blood Pressure 197/70 04/23/19 16:55 O2 Sat by Pulse Oximetry 95 04/23/19 16:55 Temperature 97.8 F 04/23/19 16:55 Pulse Rate 81 04/23/19 20:09 Respiratory Rate 16 04/23/19 20:09 Blood Pressure 165/76 04/23/19 20:09 O2 Sat by Pulse Oximetry 92 04/23/19 20:09 Oxygen Delivery Oxygen Delivery Room Air Medical Decision Making - Lab Data Result diagrams: 04/23/19 17:14 04/23/19 17:14 Lab Results 04/23/19 04/23/19 04/23/19 Range/Units 17:14 17:14 17:14 WBC 9.4 (4.3-11.1) K/mcL RBC 4.31 (3.82-4.97) M/mcL Hgb 12.9 (11.5-15.4) g/dL Hct 37.9 (35.3-44.9) % MCV 87.9 (83.0-100.0) fL MCH 29.9 (28.0-33.3) pg MCHC 34.0 (31.6-35.5) g/dL RDW 13.1 (11.5-14.5) % Plt Count 206 (140-400) K/mcL MPV 10.3 (9.4-12.4) fL Immature Gran % 0.4 (0-4) % Seg Neutrophils % 76.3 % Lymphocytes % 13.7 % Monocytes % 6.9 % Eosinophils % 2.2 % Basophils % 0.5 % Neutrophils # 7.1 (1.6-8.9) K/mcL Lymphocytes # 1.3 (0.6-4.6) K/mcL Monocytes # 0.7 (0.0-1.3) K/mcL Eosinophils # 0.2 (0.0-0.6) K/mcL Basophils # 0.1 (0.0-0.2) K/mcL Sodium 139 (136-145) mEq/L Potassium 4.3 (3.5-5.1) mEq/L Chloride 103 (98-107) mEq/L Carbon Dioxide 28 (23-29) mEq/L BUN 17 (8-23) mg/dL Creatinine 0.86 (0.60-1.20) mg/dL Est GFR ( Amer) > 60 (> 60) Est GFR (Non-Af Amer) > 60 (> 60) BUN/Creatinine Ratio 20 (6-26) Glucose 160 H (70-105) mg/dL Calculated Osmolality 293 (280-300) Lactic Acid 1.1 (0.5-2.2) mmol/L Calcium 9.6 (8.6-10.3) mg/dL Total Bilirubin 0.6 (0.3-1.0) mg/dL Direct Bilirubin 0.1 (0.0-0.2) mg/dL Indirect Bilirubin 0.5 (0.0-1.2) mg/dL AST 32 (13-39) Units/L ALT 22 (7-52) Units/L Alkaline Phosphatase 56 (34-104) Units/L Troponin I < 0.03 (< 0.04) ng/mL Serum Total Protein 7.1 (6.4-8.9) g/dL Albumin 4.0 (3.5-5.7) g/dL Globulin 3.1 (2.4-3.5) g/dL Albumin/Globulin Ratio 1.3 (1.1-2.2) Amylase 46 (29-103) Units/L Lipase 13 (11-82) Units/L Urine Color (Yellow) Urine Clarity (Clear) Urine pH (5.0-8.0) pH Units Ur Specific [place] (1.010-1.025) Urine Protein (Neg-Trace) mg/dL Urine Glucose (UA) (Normal) mg/dL Urine Ketones (Negative) mg/dL Urine Blood (Negative) Urine Nitrite (Negative) Urine Bilirubin (Negative) Urine Urobilinogen (Normal) mg/dL Ur Leukocyte Esterase (Negative) Urine Microscopic RBC (0-3) per hpf Urine Microscopic WBC (0-3) per hpf Ur Squamous Epith Cells (None-Few) per lpf Urine Bacteria (None-Few) per hpf Hyaline Casts (None-Few) per lpf Ur Culture Indicated? (NO) 04/23/19 Range/Units 18:13 WBC (4.3-11.1) K/mcL RBC (3.82-4.97) M/mcL Hgb (11.5-15.4) g/dL Hct (35.3-44.9) % MCV (83.0-100.0) fL MCH (28.0-33.3) pg MCHC (31.6-35.5) g/dL RDW (11.5-14.5) % Plt Count (140-400) K/mcL MPV (9.4-12.4) fL Immature Gran % (0-4) % Seg Neutrophils % % Lymphocytes % % Monocytes % % Eosinophils % % Basophils % % Neutrophils # (1.6-8.9) K/mcL Lymphocytes # (0.6-4.6) K/mcL Monocytes # (0.0-1.3) K/mcL Eosinophils # (0.0-0.6) K/mcL Basophils # (0.0-0.2) K/mcL Sodium (136-145) mEq/L Potassium (3.5-5.1) mEq/L Chloride (98-107) mEq/L Carbon Dioxide (23-29) mEq/L BUN (8-23) mg/dL Creatinine (0.60-1.20) mg/dL Est GFR ( Amer) (> 60) Est GFR (Non-Af Amer) (> 60) BUN/Creatinine Ratio (6-26) Glucose (70-105) mg/dL Calculated Osmolality (280-300) Lactic Acid (0.5-2.2) mmol/L Calcium (8.6-10.3) mg/dL Total Bilirubin (0.3-1.0) mg/dL Direct Bilirubin (0.0-0.2) mg/dL Indirect Bilirubin (0.0-1.2) mg/dL AST (13-39) Units/L ALT (7-52) Units/L Alkaline Phosphatase (34-104) Units/L Troponin I (< 0.04) ng/mL Serum Total Protein (6.4-8.9) g/dL Albumin (3.5-5.7) g/dL Globulin (2.4-3.5) g/dL Albumin/Globulin Ratio (1.1-2.2) Amylase (29-103) Units/L Lipase (11-82) Units/L Urine Color Yellow (Yellow) Urine Clarity Cloudy A (Clear) Urine pH 6.0 (5.0-8.0) pH Units Ur Specific [place] 1.021 (1.010-1.025) Urine Protein Negative (Neg-Trace) mg/dL Urine Glucose (UA) Normal (Normal) mg/dL Urine Ketones Trace H (Negative) mg/dL Urine Blood Negative (Negative) Urine Nitrite Positive A (Negative) Urine Bilirubin Negative (Negative) Urine Urobilinogen Normal (Normal) mg/dL Ur Leukocyte Esterase Moderate H (Negative) Urine Microscopic RBC 0-3 (0-3) per hpf Urine Microscopic WBC 30-50 H (0-3) per hpf Ur Squamous Epith Cells None Seen (None-Few) per lpf Urine Bacteria Many H (None-Few) per hpf Hyaline Casts None Seen (None-Few) per lpf Ur Culture Indicated? YES A (NO) Attestation Statement - Attestation Attestation: I examined this patient and my medical decision-making was reviewed with the Resident Physician. I agree with the documented findings, disposition and treatment plan as described except to the extent set forth below. Patient presents to the ED with a chief complaint of left upper abdominal pain. Onset this afternoon. Nausea. Has not vomited, but feels like she could. History of a similar episode in January that was about obstruction that resolved after NG tube was placed. Is a history of multiple abdominal surgeries. On exam she has a firm abdomen with upper tenderness and guarding. Plan. Labs, lactate, CT. EKG was reviewed with the resident. Patient has a suspected partial small bowel obstruction. Placing NG tube. We will admit to medicine. Treating UTI with Rocephin. Lab studies unremarkable. Abdomen/Pelvis CT 04/23/19 16:56 IMPRESSION: Cluster of mildly dilated small bowel loops in the area of a small bowel to small bowel anastomosis in the lower abdomen/pelvis. These loops are filled with stool-like material suggesting stasis. Small bowel loops proximal and distal to these mildly dilated loops are collapsed. A partial small bowel obstruction is suspected similar to the study of 01/16/2019. D/ / Yovani Floyd MD / Yovani Floyd MD Interpreting Provider: Yovani Floyd MD
[2019-04-23 17:28] LABS: Basophils # 0.1 K/mcL (0.0-0.2); Basophils % 0.5 %; Eosinophils # 0.2 K/mcL (0.0-0.6); Eosinophils % 2.2 %; Hematocrit 37.9 % (35.3-44.9); Hemoglobin 12.9 g/dL (11.5-15.4); Immature Granulocytes % 0.4 % (0-4); Lymphocytes # 1.3 K/mcL (0.6-4.6); Lymphocytes % 13.7 %; Mean Corpuscular Hemoglobin 29.9 pg (28.0-33.3); Mean Corpuscular Volume 87.9 fL (83.0-100.0); Mean Platelet Volume 10.3 fL (9.4-12.4); Monocytes # 0.7 K/mcL (0.0-1.3); Monocytes % 6.9 %; Neutrophils # 7.1 K/mcL (1.6-8.9); Platelet Count 206 K/mcL (140-400); Red Blood Count 4.31 M/mcL (3.82-4.97); Red Cell Distribution Width 13.1 % (11.5-14.5); Segmented Neutrophils % 76.3 %; White Blood Count 9.4 K/mcL (4.3-11.1)
[2019-04-23 17:49] LABS: Alanine Aminotransferase 22 Units/L (7-52); Albumin/Globulin Ratio 1.3 (1.1-2.2); Alkaline Phosphatase 56 Units/L (34-104); Amylase 46 Units/L (29-103); Aspartate Amino Transferase 32 Units/L (13-39); BUN/Creatinine Ratio 20 (6-26); Bilirubin,Direct 0.1 mg/dL (0.0-0.2); Bilirubin,Indirect 0.5 mg/dL (0.0-1.2); Bilirubin,Total 0.6 mg/dL (0.3-1.0); Blood Urea Nitrogen 17 mg/dL (8-23); Calcium 9.6 mg/dL (8.6-10.3); Carbon Dioxide 28 mEq/L (23-29); Chloride 103 mEq/L (98-107); Globulin 3.1 g/dL (2.4-3.5); Glucose 160 mg/dL (70-105); Lipase 13 Units/L (11-82); Osmolality,Calculated 293 (280-300); Potassium 4.3 mEq/L (3.5-5.1); Sodium 139 mEq/L (136-145); Total Protein 7.1 g/dL (6.4-8.9); Troponin I < 0.03 ng/mL (< 0.04); eGFR For African Americans > 60 (> 60); eGFR For Non-African Americans > 60 (> 60)
[2019-04-23] MEDS ORDERED: *HR* FentaNYL (PF) 100 MCG/2 ML VIAL IVP ONE (18:12)
[2019-04-23 18:28] LABS: Bilirubin,Urine Negative (Negative); Blood,Urine Negative (Negative); Clarity,Urine Cloudy (Clear); Color,Urine Yellow (Yellow); Glucose,Urine (UA) Normal (Normal); Ketones,Urine Trace mg/dL (Negative); Leukocyte Esterase,Urine Moderate (Negative); Nitrite,Urine Positive (Negative); Protein,Urine Negative (Neg-Trace); Specific Gravity,Urine 1.021 (1.010-1.025); Urobilinogen,Urine Normal (Normal)
[2019-04-23 18:30] LABS: Bacteria,Urine Many per hpf (None-Few); Hyaline Casts,Urine None Seen per lpf (None-Few); RBC,Urine 0-3 per hpf (0-3); Squamous Epithelial Cell,Urine None Seen per lpf (None-Few); WBC,Urine 30-50 per hpf (0-3)
[2019-04-23] MEDS ORDERED: cefTRIAXone 1,000 MG in Water for inj. (sterile) 10 ML IVP ONE (18:42)
[2019-04-23] MEDS ORDERED: D5% in 0.45% NACL w KCl 20 MEQ/1,000 ML MLS IVC SCH (19:45)
--- NOTE | 2019-04-23 20:24 | AcuteCare Surgery Consult Note ---
Date of Encounter: 04/23/19 Time of Encounter: 20:15 Assessment and Plan (1) Partial small bowel obstruction Current Visit: Yes Status: Acute NGT/IVF/NPO. Will institute nonoperative course to decompress bowel with NGT for GI decompression. +hydration. Will follow. (2) Hypertension Current Visit: No Status: Chronic Primary service to manage. Qualifiers: Hypertension type: essential hypertension Qualified Code(s): I10 - Esse ntial (primary) hypertension History of Present Illness Reason for consult: abdominal pain Requesting physician: Дмитрий Sosa History of present illness: This 88 y/o female pt with hx of multiple abdominal surgeries and SBO presents to [facility] ED c/o severe abdominal pain. Pt reports pain is diffuse. Pain doesn't radiate. Pt reports pain is similar to last SBO episode. Pt reports pain has bee n present for 1-2 days. She states that the intermittent low grade pain worsened to the point of intolerence today. Now, the pain is constant and severe. Pt reports nausea without vomiting. Pt denies hematemesis or coffee ground emesis. Pt reports flatus and BM until several hours ago. BM have become loose today. Pt denies hematochezia or melena. Reports decreased appetite. Denies fever. Past Med Surg Social Fam HX - Past Medical History Medical history: hypertension, thyroid disease Additional medical history: carcinoid tumor, SBO Psychiatric history: no psych history - Past Surgical History Surgical History: cholecystectomy, hysterectomy, other - Social History Smoking Status: Never smoker Smokeless Tobacco Status: No Alcohol use: none Drug use: none Medications and Allergies Atenolol [Tenormin] 50 mg PO BID 05/29/15 [History] Cholecalciferol (D-3) [Vitamin D3] 1,000 unit PO DAILY 05/29/15 [History] Doxepin [Sinequan] 25 mg PO HS 05/29/15 [History] Levothyroxine [Synthroid] 150 mcg PO DAILY 05/29/15 [History] Multivit-Min/FA/Lycopen/Lutein [Centrum Silver Tablet] 1 each PO DAILY 05/29/15 [History] Losartan Potassium [Cozaar] 50 mg PO DAILY #90 tab 07/22/16 [Rx] Allergy/AdvReac Type Severity Reaction Status Date / Time Penicillins Allergy swelling Verified 05/05/17 10:53 Review of Systems All systems PM: The remainder of the systems were reviewed and are negative - Constitutional as per HPI, anorexia, fatigue, no excessive sweating, no fever(s), no night sweats, no weight loss - EENT Nose, mouth and throat: dry mouth, no dysphagia, no nasal congestion, no nasal discharge, no sinus pain, no sinus pressure, no sore throat - Cardiovascular no chest pain, no diaphoresis, no dyspnea, no edema - Respiratory no cough, no dyspnea, no wheezing - Gastrointestinal abdominal pain, bloating, constipation, cramping, nausea, no diarrhea, no vomiting - Genitourinary Genitourinary: dysuria, flank pain, urinary frequency - Musculoskeletal no back pain, no joint swelling, no limited range of motion, no neck pain - Integumentary dry skin, no pruritus, no rash, no wounds, no jaundice - Neurological no confusion, no dizziness, no focal weakness, no headache(s), no weakness - Psychiatric no anxiety, no depression - Endocrine no fatigue - Hematologic/Lymphatic no easy bleeding, no easy bruising General Surgery Exam Initial Vital Signs Temp Pulse Resp BP Pulse Ox 97.8 F 76 18 197/70 95 04/23/19 16:55 04/23/19 16:55 04/23/19 16:55 04/23/19 16:55 04/23/19 16:55 - General physical appearance well developed, well nourished, no distress, moderate pain. negative: jaundice - Eyes PERRL, normal ocular movement. negative: icteric - ENT no congestion, dry mucosa. negative: nasal discharge - Neck no masses, trachea midline, no lymphadectomy, no venous distension - Respiratory normal respiratory effort, clear to auscultation - Cardiovascular Cardiovascular exam: Present: RRR. Absent: JVD - Abdomen Abdomen general surgery: Present: bowel sounds present (hypoactive), soft, distended Abdominal Tenderness: Present: diffusely - Genitourinary Present: normal external genitalia - Integumentary Integumentary general surgery: Present: warm and dry - Neurologic Present: CN 2-12 grossly intact, normal coordination - Musculoskeletal Present: normal gait, normal posture - Psychiatric Psychiatric general surgery: Present: A&Ox3, appropriate Exam Initial Vital Signs Temp Pulse Resp BP Pulse Ox 97.8 F 76 18 197/70 95 04/23/19 16:55 04/23/19 16:55 04/23/19 16:55 04/23/19 16:55 04/23/19 16:55 Results - Labs 04/23/19 17:14 04/23/19 17:14 Abnormal lab results Glucose 160 mg/dL (70-105) H 04/23/19 17:14 Urine Clarity Cloudy (Clear) A 04/23/19 18:13 Urine Ketones Trace mg/dL (Negative) H 04/23/19 18:13 Urine Nitrite Positive (Negative) A 04/23/19 18:13 Ur Leukocyte Esterase Moderate (Negative) H 04/23/19 18:13 Urine Microscopic WBC 30-50 per hpf (0-3) H 04/23/19 18:13 Urine Bacteria Many per hpf (None-Few) H 04/23/19 18:13 Ur Culture Indicated? YES (NO) A 04/23/19 18:13 Diabetes panel 04/23/19 Range/Units 17:14 Sodium 139 (136-145) mEq/L Potassium 4.3 (3.5-5.1) mEq/L Chloride 103 (98-107) mEq/L Carbon Dioxide 28 (23-29) mEq/L BUN 17 (8-23) mg/dL Creatinine 0.86 (0.60-1.20) mg/dL Glucose 160 H (70-105) mg/dL Calcium 9.6 (8.6-10.3) mg/dL AST 32 (13-39) Units/L ALT 22 (7-52) Units/L Alkaline Phosphatase 56 (34-104) Units/L Albumin 4.0 (3.5-5.7) g/dL Calcium panel 04/23/19 Range/Units 17:14 Calcium 9.6 (8.6-10.3) mg/dL Albumin 4.0 (3.5-5.7) g/dL Pituitary panel 04/23/19 Range/Units 17:14 Sodium 139 (136-145) mEq/L Potassium 4.3 (3.5-5.1) mEq/L Chloride 103 (98-107) mEq/L Carbon Dioxide 28 (23-29) mEq/L BUN 17 (8-23) mg/dL Creatinine 0.86 (0.60-1.20) mg/dL Glucose 160 H (70-105) mg/dL Calcium 9.6 (8.6-10.3) mg/dL Adrenal panel 04/23/19 Range/Units 17:14 Sodium 139 (136-145) mEq/L Potassium 4.3 (3.5-5.1) mEq/L Chloride 103 (98-107) mEq/L Carbon Dioxide 28 (23-29) mEq/L BUN 17 (8-23) mg/dL Creatinine 0.86 (0.60-1.20) mg/dL Glucose 160 H (70-105) mg/dL Calcium 9.6 (8.6-10.3) mg/dL Total Bilirubin 0.6 (0.3-1.0) mg/dL AST 32 (13-39) Units/L ALT 22 (7-52) Units/L Alkaline Phosphatase 56 (34-104) Units/L Albumin 4.0 (3.5-5.7) g/dL All other labs normal. - Imaging CT scan - abdomen: image reviewed (dilated loops of SB suggesting pSBO) CT scan - pelvis: image reviewed Consult Discharge Plan - Plan Referrals: Rukhsana Haque, [employer] [Primary Care Provider] -
[2019-04-23] MEDS ORDERED: Ketorolac 15 MG/ML VIAL IVP PRN (20:25)
[2019-04-23] MEDS ORDERED: Ondansetron 4 MG/2 ML VIAL IVP PRN (20:30)
--- NOTE | 2019-04-23 20:35 | Internal Med History&Physical ---
Date of Encounter: 04/23/19 Time of Encounter: 20:34 Internal Medicine - H&P: HPI Chief complaint: nausea Admitted From: Home Plans for Post Hospital Care: Home History of present illness: Lizzy Escalante is an 88 year old woman with a history remarkable for bowel carcinoid resection amongst other surgical interventions admitted 3 months ago for SBO who presents today complaining of abdominal discomfort and bloating that start today with nausea and 1 episode of loose stool earlier in the day. She has been nauseated but has not vomited. She arrived hemodynamically stable. CT scan showed a cluster of mildly dilated small bowel loops in the area of the small bowel to small bowel anastomosis in the lower abdomen/pelvis with loops filled with stool-like material suggesting stasis. Loops proximal and distal to these areas are collapsed. Partial small bowel obstruction is suspected. Surgery was consulted and an NG tube was placed. She is admitted for further care. On my assessment her only complaint is upper abdominal discomfort. Vitals: Reviewed General: Pleasant appearing elderly woman lying in bed in NAD. Skin: Warm and dry. Pale. HEENT: Moist mucous membranes. No conjunctivae pallor. Neck: No lymphadenopathy. No JVD. No carotid bruits. No palpable thyroid. Chest: Normal thoracic expansion. Normal breath sounds. Clear to auscultation. Heart: Normal S1 & S2; rhythmic. No rubs or murmurs. Abdomen: Slightly distended, soft and mildly uncomfortable to palpation but no exquisite pain or peritoneal reaction. Extremities: No clubbing, cyanosis or edema. No calf tenderness. Normal distal pulses. Neurological: Awake, alert and oriented to person, place and time. No focal deficits. Psych: Affect appropriate. Assessment/Plan 1. Abdominal pain: Secondary to partial small bowel obstruction. He has a history of carcinoid tumor resection, cholecystectomy, open hysterectomy and exploratory laparotomy with lysis of adhesions in the past. NG tube is inserted and will connect to LIS. Analgesics and antiemetics as needed. Will give electrolyte rich IV resuscitation and check labs in the morning. 2. Hypertension: Poorly controlled values at this time. Will monitor trend and provide IV meds if necessary based on values and symptoms. 3. Hypothyroidism: Biochemically euthyroid. 4. Abnormal UA: Patient is asymptomatic and without indication for antibiotics. Past Med Surg Social Fam HX - Past Medical History Medical history: hypertension, thyroid disease Additional medical history: carcinoid tumor, SBO Psychiatric history: no psych history - Past Surgical History Surgical History: cholecystectomy, hysterectomy, other - Social History Smoking Status: Never smoker Smokeless Tobacco Status: No Alcohol use: none Drug use: none Internal Medicine - H&P: Meds Atenolol [Tenormin] 50 mg PO BID 05/29/15 [History] Cholecalciferol (D-3) [Vitamin D3] 1,000 unit PO DAILY 05/29/15 [History] Doxepin [Sinequan] 25 mg PO HS 05/29/15 [History] Levothyroxine [Synthroid] 150 mcg PO DAILY 05/29/15 [History] Multivit-Min/FA/Lycopen/Lutein [Centrum Silver Tablet] 1 each PO DAILY 05/29/15 [History] Losartan Potassium [Cozaar] 50 mg PO DAILY #90 tab 07/22/16 [Rx] Allergy/AdvReac Type Severity Reaction Status Date / Time Penicillins Allergy swelling Verified 05/05/17 10:53 All Systems PM: A 10-system review of systems was performed and is negative for pertinent findings except as documented above in the HPI. Family history reviewed and found non-contributory. - Constitutional Vitals: Temp Pulse Resp BP Pulse Ox 97.8 F 81 16 165/76 92 04/23/19 16:55 04/23/19 20:09 04/23/19 20:09 04/23/19 20:09 04/23/19 20:09 Exam: . Internal Med - H&P Results - Labs CBC & Chem 7: 04/23/19 17:14 04/23/19 17:14 Labs: Short CBC 04/23/19 Range/Units 17:14 WBC 9.4 (4.3-11.1) K/mcL Hgb 12.9 (11.5-15.4) g/dL Hct 37.9 (35.3-44.9) % Plt Count 206 (140-400) K/mcL Neutrophils # 7.1 (1.6-8.9) K/mcL BMP 04/23/19 17:14 Sodium 139 Potassium 4.3 Chloride 103 Carbon Dioxide 28 BUN 17 Creatinine 0.86 Glucose 160 H Calcium 9.6 Cardiac Enzymes 04/23/19 Range/Units 17:14 Troponin I < 0.03 (< 0.04) ng/mL Liver Function 04/23/19 Range/Units 17:14 Total Bilirubin 0.6 (0.3-1.0) mg/dL Direct Bilirubin 0.1 (0.0-0.2) mg/dL AST 32 (13-39) Units/L ALT 22 (7-52) Units/L Alkaline Phosphatase 56 (34-104) Units/L Albumin 4.0 (3.5-5.7) g/dL Urine 04/23/19 Range/Units 18:13 Urine Color Yellow (Yellow) Urine Clarity Cloudy A (Clear) Urine pH 6.0 (5.0-8.0) pH Units Ur Specific [place] 1.021 (1.010-1.025) Urine Protein Negative (Neg-Trace) mg/dL Urine Glucose (UA) Normal (Normal) mg/dL - Impressions ITS Impressions Abdomen/Pelvis CT 04/23/19 16:56 IMPRESSION: Cluster of mildly dilated small bowel loops in the area of a small bowel to small bowel anastomosis in the lower abdomen/pelvis. These loops are filled with stool-like material suggesting stasis. Small bowel loops proximal and distal to these mildly dilated loops are collapsed. A partial small bowel obstruction is suspected similar to the study of 01/16/2019. D/ / Yovani Floyd MD / Yovani Floyd MD Interpreting Provider: Yovani Floyd MD - Time Spent With Patient Total time spent is greater than 50% in coordination of care (as documented) at patient's floor/unit and/or counseling patient: Greater than 35 minutes
[2019-04-23] MEDS: Acetaminophen IV 1,000 MG/100 ML INFUS..BTL IVPB SCH (23:56)
[2019-04-24] MEDS: *HR* Heparin 5,000 UNIT/ML VIAL SQ SCH ×2 (05:33→18:01)
[2019-04-24] MEDS: Acetaminophen IV 1,000 MG/100 ML INFUS..BTL IVPB SCH ×3 (05:37→18:04)
[2019-04-24 07:09] LABS: Basophils % 0.3 %; Eosinophils # 0.1 K/mcL (0.0-0.6); Eosinophils % 1.7 %; Hematocrit 36.9 % (35.3-44.9); Hemoglobin 12.5 g/dL (11.5-15.4); Immature Granulocytes % 0.3 % (0-4); Lymphocytes # 1.4 K/mcL (0.6-4.6); Mean Corpuscular HGB Conc 33.9 g/dL (31.6-35.5); Mean Corpuscular Hemoglobin 30.1 pg (28.0-33.3); Mean Corpuscular Volume 88.9 fL (83.0-100.0); Mean Platelet Volume 10.7 fL (9.4-12.4); Monocytes # 0.8 K/mcL (0.0-1.3); Monocytes % 11.2 %; Neutrophils # 4.5 K/mcL (1.6-8.9); Platelet Count 200 K/mcL (140-400); Red Blood Count 4.15 M/mcL (3.82-4.97); Red Cell Distribution Width 13.2 % (11.5-14.5); Segmented Neutrophils % 65.5 %; White Blood Count 6.9 K/mcL (4.3-11.1)
[2019-04-24 07:17] LABS: INR 1.1; Prothrombin Time 12.8 Seconds (9.4-12.1)
[2019-04-24 07:20] LABS: Activated Partial Thrombo Time 30.5 Seconds (26.0-36.0)
[2019-04-24 07:36] LABS: BUN/Creatinine Ratio 18 (6-26); Blood Urea Nitrogen 16 mg/dL (8-23); Carbon Dioxide 28 mEq/L (23-29); Chloride 102 mEq/L (98-107); Glucose 148 mg/dL (70-105); Magnesium 1.6 mg/dL (1.6-2.6); Osmolality,Calculated 290 (280-300); Sodium 138 mEq/L (136-145); eGFR For African Americans > 60 (> 60); eGFR For Non-African Americans > 60 (> 60)
--- NOTE | 2019-04-24 12:44 | AcuteCareSurgery Progress Note ---
Date of Encounter: 04/24/19 Time of Encounter: 07:35 - Assessment and Plan (1) Partial small bowel obstruction Current Visit: Yes Status: Acute The patient has had resolution of her bowel obstruction with bowel movement and no nasogastric tube drainage. Nasogastric tube will be removed and we will start her on clear liquids. Subjective Narrative: The patient is seen and evaluated on morning rounds with the acute care surgery team. Nasogastric tube drainage has fallen off to 0 and the patient has had a bowel movement. Nasogastric tube can be removed and we will start her on clear liquid diet. She has no abdominal pain. Bowel sounds are normal. Objective Vital Signs - Last 8 Hours Temp Pulse Resp BP Pulse Ox 04/24/19 11:58 98.2 F 72 16 144/77 97 04/24/19 06:25 97.7 F 70 16 159/80 96 Intake and Output 04/23/19 04/24/19 04/24/19 23:59 07:59 15:59 Intake Total 10 / 10 100 / 1100 1000 / 1100 Output Total 50 / 50 Balance 10 / 10 50 / 1050 1000 / 1050 Intake: IV Fluids 10 / 10 100 / 1100 1000 / 1100 KCl 20mEq IN D5%-0.45 NACL 20 1000 / 1000 meq In 1,000 ml @ 100 mls/hr IVC .Q10H MEGHANN Rx#:[id number] Rocephin 1,000 MG In Water for 10 / 10 inj. (sterile) 10 ML @ 600 mls/ hr IVP ONCE ONE Rx#:[id number] Ofirmev 1,000 mg/100 ml 1,000 100 / 100 mg In 100 ml @ 400 mls/hr IVPB Q6HR MEGHANN Rx#:[id number] Oral 0 / 0 0 / 0 Output: Gastric Drainage 50 / 50 Other: Meal Breakfast Percent of Meal Consumed 0% # Voids 1 # Bowel Movements 1 Weight 79.6 kg 80.3 kg Blood Glucose* 135 Patient Weight 04/24/19 23:59 Weight 80.3 kg - General physical appearance well developed, well nourished, no distress, no pain - Respiratory normal expansion, normal respiratory effort, clear to percussion, clear to auscultation - Cardiovascular Cardiovascular exam: Present: RRR, no murmurs/rubs/gallops - Abdomen Abdomen: Present: bowel sounds present, soft, non tender - Neurologic CN 2-12 grossly intact, normal coordination, normal sensation - Psychiatric oriented to time, oriented to person, oriented to place, speech is normal, memory intact - Labs 04/24/19 06:08 04/24/19 06:08 Diabetes panel 04/23/19 04/24/19 Range/Units 17:14 06:08 Sodium 139 138 (136-145) mEq/L Potassium 4.3 4.0 (3.5-5.1) mEq/L Chloride 103 102 (98-107) mEq/L Carbon Dioxide 28 28 (23-29) mEq/L BUN 17 16 (8-23) mg/dL Creatinine 0.86 0.88 (0.60-1.20) mg/dL Glucose 160 H 148 H (70-105) mg/dL Calcium 9.6 9.0 (8.6-10.3) mg/dL AST 32 (13-39) Units/L ALT 22 (7-52) Units/L Alkaline Phosphatase 56 (34-104) Units/L Albumin 4.0 (3.5-5.7) g/dL Calcium panel 04/23/19 04/24/19 Range/Units 17:14 06:08 Calcium 9.6 9.0 (8.6-10.3) mg/dL Phosphorus 3.0 (2.7-4.5) mg/dL Albumin 4.0 (3.5-5.7) g/dL Pituitary panel 04/23/19 04/24/19 Range/Units 17:14 06:08 Sodium 139 138 (136-145) mEq/L Potassium 4.3 4.0 (3.5-5.1) mEq/L Chloride 103 102 (98-107) mEq/L Carbon Dioxide 28 28 (23-29) mEq/L BUN 17 16 (8-23) mg/dL Creatinine 0.86 0.88 (0.60-1.20) mg/dL Glucose 160 H 148 H (70-105) mg/dL Calcium 9.6 9.0 (8.6-10.3) mg/dL Adrenal panel 04/23/19 04/24/19 Range/Units 17:14 06:08 Sodium 139 138 (136-145) mEq/L Potassium 4.3 4.0 (3.5-5.1) mEq/L Chloride 103 102 (98-107) mEq/L Carbon Dioxide 28 28 (23-29) mEq/L BUN 17 16 (8-23) mg/dL Creatinine 0.86 0.88 (0.60-1.20) mg/dL Glucose 160 H 148 H (70-105) mg/dL Calcium 9.6 9.0 (8.6-10.3) mg/dL Total Bilirubin 0.6 (0.3-1.0) mg/dL AST 32 (13-39) Units/L ALT 22 (7-52) Units/L Alkaline Phosphatase 56 (34-104) Units/L Albumin 4.0 (3.5-5.7) g/dL Consult Discharge Plan - Plan Referrals: Rukhsana Haque, [employer] [Primary Care Provider] -
--- NOTE | 2019-04-24 18:32 | Internal Med Progress Note ---
Hospitalist Progress Note - Encounter Date of Encounter: 04/24/19 Time of Encounter: 10:30 - Subjective Interval History: Ms Escalante does endorse extensive history of prior abdominal surgeries including 12 years ago for carcinoid tumor, hysterectomy with SBO and later oophorectomy, cholecystectomy as well as prior history of small bowel obstruction. Her nasogastric tube has been discontinued and she feels much better and is tolerating her liquid diet GEN: Denies fever, chills or malaise HEENT: Denies headache blurriness, or dysphagia RESP: Denies SOB or cough CV: Denies chest pain or palpitations GI: Denies Nausea, vomiting, diarrhea or constipation Reviewed current in hospital medications with modifications see orders Reviewed Routine labs - Exam Vitals: Temp Pulse Resp BP Pulse Ox 97.9 F 75 16 162/82 98 04/24/19 14:40 04/24/19 17:57 04/24/19 14:40 04/24/19 17:57 04/24/19 14:40 Exam: GEN: NAD, A&O x 3, Pleasant and conversant, her daughter at the bedside SKIN: [place] warm acyanotic not jaundice HEART: RRR, no murmurs LUNGS: CTA no wheeze or crackles, overall non labored ABDOMEN; obese Soft, non tender or distended, BS x 4 normactive EXT: No LE edema, Pedal pulses 1+, radial pulses 2+ PSYCH: Mood and affect is appropriate - Assessment and Plan (1) Partial small bowel obstruction Current Visit: Yes Status: Acute Assessment and Plan: Past abdominal surgeries does predisposes her to SBO. She reports feeling better status post NG tube decompression and discontinuation, she was seen by the Gen. surgery team who has ordered clear liquid diet. Discussed with patient and her daughter that as long as she can advance her diet and tolerate anticipate discharge tomorrow. She was strongly advised and encouraged to continue ambulation and avoid being sedentary. Plan is to continue with conservative treatment (2) Hypothyroidism Current Visit: Yes Status: Acute Assessment and Plan: Continue levothyroxine check TSH (3) Pyuria Current Visit: Yes Status: Acute Assessment and Plan: This was evident on the urinalysis on admission she denies any dysuria she is afebrile and leukocytosis would clinically correlate (4) Hypertension Current Visit: Yes Status: Chronic Assessment and Plan: She is no longer nothing by mouth we will resume her antihypertensive medications DVT Prophylaxis: Heparin subcutaneous - Time Spent with Patient Total time spent is greater than 50% in coordination of care (as documented) at patient's floor/unit and/or counseling patient: Plan of Care Discussed with: family Internal Medicine: Result - Labs CBC & Chem 7: 04/24/19 06:08 04/24/19 06:08 Labs: Short CBC 04/24/19 Range/Units 06:08 WBC 6.9 (4.3-11.1) K/mcL Hgb 12.5 (11.5-15.4) g/dL Hct 36.9 (35.3-44.9) % Plt Count 200 (140-400) K/mcL Neutrophils # 4.5 (1.6-8.9) K/mcL BMP 04/24/19 06:08 Sodium 138 Potassium 4.0 Chloride 102 Carbon Dioxide 28 BUN 16 Creatinine 0.88 Glucose 148 H Calcium 9.0 Urine 04/23/19 Range/Units 18:13 Urine Color Yellow (Yellow) Urine Clarity Cloudy A (Clear) Urine pH 6.0 (5.0-8.0) pH Units Ur Specific [place] 1.021 (1.010-1.025) Urine Protein Negative (Neg-Trace) mg/dL Urine Glucose (UA) Normal (Normal) mg/dL - ABG Interpretation ABG results: PT/INR, D-dimer PT 12.8 Seconds (9.4-12.1) H 04/24/19 06:08 Consult Discharge Plan - Plan Referrals: Rukhsana Haque, [employer]S DEVELOPER [Primary Care Provider] - (4) Hypertension Qualifiers: Hypertension type: essential hypertension Qualified Code(s): I10 - Essential (primary) hypertension
[2019-04-24] MEDS ORDERED: Melatonin 3 MG TABLET PO PRN (21:34)
[2019-04-25] MEDS: Acetaminophen IV 1,000 MG/100 ML INFUS..BTL IVPB SCH ×2 (01:44→06:18)
[2019-04-25] MEDS: *HR* Heparin 5,000 UNIT/ML VIAL SQ SCH (06:18)
[2019-04-25 07:21] LABS: Basophils % 0.4 %; Eosinophils # 0.2 K/mcL (0.0-0.6); Eosinophils % 4.3 %; Hematocrit 36.6 % (35.3-44.9); Immature Granulocytes % 0.4 % (0-4); Lymphocytes # 1.4 K/mcL (0.6-4.6); Lymphocytes % 24.8 %; Mean Corpuscular HGB Conc 32.8 g/dL (31.6-35.5); Mean Corpuscular Hemoglobin 30.3 pg (28.0-33.3); Mean Corpuscular Volume 92.4 fL (83.0-100.0); Mean Platelet Volume 10.6 fL (9.4-12.4); Monocytes # 0.5 K/mcL (0.0-1.3); Monocytes % 8.7 %; Neutrophils # 3.4 K/mcL (1.6-8.9); Platelet Count 179 K/mcL (140-400); Red Blood Count 3.96 M/mcL (3.82-4.97); Red Cell Distribution Width 13.2 % (11.5-14.5); Segmented Neutrophils % 61.4 %; White Blood Count 5.5 K/mcL (4.3-11.1)
[2019-04-25 07:52] LABS: BUN/Creatinine Ratio 10 (6-26); Blood Urea Nitrogen 9 mg/dL (8-23); Carbon Dioxide 30 mEq/L (23-29); Chloride 104 mEq/L (98-107); Glucose 102 mg/dL (70-105); Magnesium 1.6 mg/dL (1.6-2.6); Osmolality,Calculated 295 (280-300); Potassium 3.9 mEq/L (3.5-5.1); Sodium 143 mEq/L (136-145); eGFR For African Americans > 60 (> 60); eGFR For Non-African Americans > 60 (> 60)
[2019-04-25 07:58] LABS: Thyroid Stimulating Hormone 3.225 mcIU/mL (0.340-5.600)
[2019-04-25] MEDS ORDERED: Multivit/Ca/Min/Fe/FA 1 TAB TABLET PO SCH (09:00)
[2019-04-25] MEDS ORDERED: Cholecalciferol (D-3) 1,000 UNIT (25MCG) TABLET PO SCH (09:00)
--- NOTE | 2019-04-25 09:30 | Discharge Summary ---
Orders not resulted at time of discharge: Pending orders 04/23/19 17:15 EKG [ECG 12 lead ECG] [ECG] Stat 04/26/19 04:00 Basic Metabolic Panel AM 0400 Complete Blood Count [HEME] AM 0400 Magnesium AM 0400 Date of Encounter: 04/25/19 Time of Encounter: 09:28 - Discharge Diagnosis (1) Partial small bowel obstruction Priority: Primary Status: Resolved Assessment and Plan: due to bowel adhesion 2/2 to previous abdominal surgeries resolved on conservative measures tolerating diet well has 2 BM today morning Hospital course: Ms. Escalante is a 88 year old female Age 68 years old woman with history for bowel carcinoid resection and history of extensive abdominal surgeries was admitted because of abdominal discomfort with bloating and was found to have partial bowel obstruction on CT abdomen and pelvis, Gen. surgery consulted the patient started on NG tube suctioning for bowel rest. Patient's symptoms improved significantly on conservative measures resumed back on diet and tolerated that well has had a bowel movement, NG tube was removed. Also the patient has incidental finding of pyuria however the patient has no urinary symptoms no fever nor leukocytosis, antibiotic is not indicated patient to be d/c home after surgery clearance, follow up with PCP in 1 week - Time Spent with Patient Total time spent providing and/or coordinating discharge services: 35 min - Discharge Medications Prescriptions: Continued Multivit-Min/FA/Lycopen/Lutein [Centrum Silver Tablet] 1 each PO DAILY Losartan Potassium [Cozaar] 50 mg PO DAILY #90 tab Atenolol [Tenormin] 50 mg PO BID Cholecalciferol (Vitamin D3) [Vitamin D3] 1,000 units PO DAILY Doxepin [Sinequan] 25 mg PO HS Levothyroxine [Synthroid] 150 mcg PO QAM Lutein [Natural Lutein] 20 mg PO DAILY Home Medications: Multivit-Min/FA/Lycopen/Lutein [Centrum Silver Tablet] 1 each PO DAILY 05/29/15 [History] Losartan Potassium [Cozaar] 50 mg PO DAILY #90 tab 07/22/16 [Rx] Atenolol [Tenormin] 50 mg PO BID 04/24/19 [History] Cholecalciferol (Vitamin D3) [Vitamin D3] 1,000 units PO DAILY 04/24/19 [His tory] Doxepin [Sinequan] 25 mg PO HS 04/24/19 [History] Levothyroxine [Synthroid] 150 mcg PO QAM 04/24/19 [History] Lutein [Natural Lutein] 20 mg PO DAILY 04/24/19 [History] Allergies/Adverse Reactions: Allergy/AdvReac Type Severity Reaction Status Date / Time Penicillins Allergy swelling Verified 04/24/19 20:05 Date of admission: 04/23/19 19:44 Primary care physician: Rukhsana Haque CNP Consults: 04/23/19 19:07 Consult to Surgery [CONS] Stat Consulting Provider: Acute Care Surgery Reason for Consult: Partial SBO Time Notified: 19:07 Call Completed: Yes - Constitutional Vitals: Temp Pulse Resp BP Pulse Ox 98.2 F 76 17 146/82 96 04/25/19 07:05 04/25/19 07:05 04/25/19 07:05 04/25/19 07:05 04/25/19 07:05 Exam: GEN: NAD, A&O x 3, Pleasant and conversant, not in respiratory distress SKIN: [place] warm acyanotic not jaundice HEART: RRR, no murmurs LUNGS: CTA no wheeze or crackles, overall non labored ABDOMEN; obese Soft, non tender , not distended, BS x 4 normactive EXT: No LE edema, Pedal pulses 1+, radial pulses 2+ PSYCH: Mood and affect is appropriate - Patient Status Disposition: Home, Self-Care Condition: Fair - Discharge Instructions Follow Up With: Rukhsana Haque CNP [Primary Care Provider] -
--- NOTE | 2019-04-25 10:19 | AcuteCareSurgery Progress Note ---
Date of Encounter: 04/25/19 Time of Encounter: 10:18 - Assessment and Plan (1) Small bowel obstruction Current Visit: Yes Status: Acute 88F with multiple abdominal surgeries presents with an SBO that has now resolved; diet as tolerated okay to discharge from surgery standpoint general surgery will sign off; please call with any new questions or concerns Subjective Patient reports: no new complaints, feels better, tolerating liquids well, flatus, bowel movement Objective Vital Signs - Last 8 Hours Temp Pulse Resp BP Pulse Ox 04/25/19 07:05 98.2 F 76 17 146/82 96 04/25/19 03:45 98.2 F 70 15 134/65 93 Intake and Output 04/24/19 04/25/19 04/25/19 23:59 07:59 15:59 Intake Total 360 / 360 Balance 360 / 360 Intake: Oral 360 / 360 Other: Meal Breakfast Percent of Meal Consumed 100% # Voids 3 1 Weight 79.2 kg Patient Weight 04/25/19 23:59 Weight 79.2 kg - General physical appearance no distress - Respiratory normal expansion, normal respiratory effort - Cardiovascular Cardiovascular exam: Present: RRR - Abdomen Abdomen: Present: soft, non tender - Neurologic CN 2-12 grossly intact - Musculoskeletal normal posture - Psychiatric oriented to time, oriented to person, oriented to place - Labs 04/25/19 06:49 04/25/19 06:49 Diabetes panel 04/25/19 Range/Units 06:49 Sodium 143 (136-145) mEq/L Potassium 3.9 (3.5-5.1) mEq/L Chloride 104 (98-107) mEq/L Carbon Dioxide 30 H (23-29) mEq/L BUN 9 (8-23) mg/dL Creatinine 0.86 (0.60-1.20) mg/dL Glucose 102 (70-105) mg/dL Calcium 9.0 (8.6-10.3) mg/dL Thyroid panel 04/25/19 Range/Units 06:49 TSH 3.225 (0.340-5.600) mcIU/mL Calcium panel 04/25/19 Range/Units 06:49 Calcium 9.0 (8.6-10.3) mg/dL Pituitary panel 04/25/19 Range/Units 06:49 Sodium 143 (136-145) mEq/L Potassium 3.9 (3.5-5.1) mEq/L Chloride 104 (98-107) mEq/L Carbon Dioxide 30 H (23-29) mEq/L BUN 9 (8-23) mg/dL Creatinine 0.86 (0.60-1.20) mg/dL Glucose 102 (70-105) mg/dL Calcium 9.0 (8.6-10.3) mg/dL TSH 3.225 (0.340-5.600) mcIU/mL Adrenal panel 04/25/19 Range/Units 06:49 Sodium 143 (136-145) mEq/L Potassium 3.9 (3.5-5.1) mEq/L Chloride 104 (98-107) mEq/L Carbon Dioxide 30 H (23-29) mEq/L BUN 9 (8-23) mg/dL Creatinine 0.86 (0.60-1.20) mg/dL Glucose 102 (70-105) mg/dL Calcium 9.0 (8.6-10.3) mg/dL Consult Discharge Plan - Plan Instructions: Bowel Obstruction (GEN) Referrals: Rukhsana Haque CNP [Primary Care Provider] - Haley Lopez CNP [Advanced Practice Nurse] -
[2019-04-25 10:40] VITALS: BP 160/79
--- NOTE | 2019-04-25 15:24 | Electrocardiograph Report ---
[facility] Test Date: 2019-04-23 Pat Name: Lizzy Escalante Department: EXAM9 Room: 3A62 Gender: F Welfare Analyst: : [id number] Requested By: Anny See Order Number: [id number] Reading MD: Bowen Ureña Measurements Intervals [place] Rate: 76 P: 54 FL: 157 QRS: 26 QRSD: 90 T: 106 QT: 396 QTc: 446 Interpretive Statements Sinus rhythm Abnormal R-wave progression, early transition Borderline repolarization abnormality Electronically Signed On 04-25-2019 15:22:22 EDT by Bowen Ureña
== END 2019-04-25 14:00 | disposition home or self-care (01) | DRG 389 ==
LOC: EMEROOARM 16:51 → SUATTDRO 19:44 → 3ANU 19:44
PROVIDERS: ADMIT Student in an Organized Health Care Education/Training Program; ATTEND Pharmacist